=== PATIENT | female | born 1950 | race African-American/Black ===

== ENCOUNTER 2017-05-03 08:44 | Inpatient (IN) | payer BC ==
[2017-05-03] VITALS (8 sets, daily range): BP systolic 79–135; BP diastolic 44–105
[~2017-05-03] VITALS: Ht 162.6 cm; Wt 54.4 kg
[2017-05-03] MEDS ORDERED: DOCUSATE SODIU100 MG GT (08:55)
[2017-05-03] MEDS ORDERED: FUROSEMIDE20 M1 GT (08:55)
[2017-05-03] MEDS ORDERED: CARAFATE1 G1 GT (08:55)
[2017-05-03] MEDS ORDERED: FOLIC ACID1 MG GT (08:55)
[2017-05-03] MEDS ORDERED: ATORVASTATIN CA20 MG GT (08:55)
[2017-05-03] MEDS ORDERED: HYDROCODON-ACE1 EA15 GT (08:55)
[2017-05-03] MEDS ORDERED: LEVALBUTER1.25 MG/3 IH (08:55)
[2017-05-03] MEDS ORDERED: FAMOTIDINE40 MG GT (08:55)
--- NOTE | 2017-05-03 08:57 | Emergency Room Report ---
History of Present Illness General Chief Complaint: General Complaint Source: Patient, EMS Present Illness HPI 67-year-old female history of chronic respiratory failure with ventilator dependency with trach placed March 2017, history of right pneumonectomy 2006 , CHF last echo performed in [facility] showing ejection fraction of 68% with mild diastolic dysfunction,, paroxysmal A. fib not on anticoagulation because of GI bleed, gastrostomy tube, presenting with abdominal pain. Patient has trach however able to answer yes or no questions with head nodding. Complained of abdominal pain, points to suprapubic and right lower courted area, occurred this morning. Per EMS patient was tachycardia about 120s. Patient has some nausea but no caesar vomiting. Denies diarrhea denies fever or chills Allergies: Coded Allergies: ALBUTEROL (Verified Allergy, Unknown, 05/03/17) CODEINE (Verified Allergy, Unknown, 05/03/17) TRAMADOL (Verified Allergy, Unknown, 05/03/17) WARFARIN (Verified Allergy, Unknown, 05/03/17) Patient History Past Medical History: see triage record Past Surgical History: none Pertinent Family History: none Reviewed Nursing Documentation: PMH: Agreed, PSxH: Agreed Nursing Documentation-PMH Past Medical History: No History, Except For Hx Cardiac Problems: Yes - CHF, AFIB Hx Asthma: No - VENT Hx COPD: Yes Hx Gastrointestinal Problems: Yes - G-TUBE Hx Cerebrovascular Accident: No - ENCEPHALOPATHY Review of Systems All Other Systems: negative except mentioned in HPI Physical Exam Vital Signs Date Time Temp Pulse Resp B/P (MAP) Pulse Ox O2 Delivery O2 Flow Rate FiO2 05/03/17 08:39 128 18 132/78 100 Trach Collar Sp02 EP Interpretation: reviewed, normal General Appearance: alert, non-toxic, other - Middle aged female, appears tired , trached however alert and answering questions with yes or no and hand gestures Head: normocephalic, atraumatic Eyes: bilateral eye normal inspection, bilateral eye PERRL, bilateral eye EOMI ENT: normal pharynx, moist mucus membranes, other - Unable to speak secondary to trach Neck: normal inspection, full range of motion, supple Respiratory: normal inspection, lungs clear, normal breath sounds, no respiratory distress, no retraction, no wheezing, speaking full sentences, other - Trach, chest symmetrical Cardiovascular #1: normal inspection, regular rate, rhythm, no edema, normal capillary refill Cardiovascular #2: 2+ radial (R), 2+ radial (L) Gastrointestinal: soft, non-distended, no guarding, other - PEG tube in place, right lower quadrant and suprapubic tenderness, no guarding or rebound Musculoskeletal: normal inspection, back normal, normal range of motion, non- tender Neurologic: responsive, motor strength/tone normal, sensory intact, other - Unable to speak however moving all 4 extremities spontaneously, following commands Psychiatric: normal inspection, judgement/insight normal, memory normal Skin: normal inspection, normal color, no rash, warm/dry, well hydrated, normal turgor Procedures Critical Care Time Critical Care Time 40 minutes of CC time 67-year-old female with abdominal pain VS: Borderline febrile, tachycardia, hypotensive Sepsis criteria met Trach tube to vent PLAN: IV access, labs, lactate, Blood/Urine Cx, Abx Anticipate admission to [facility] CC time also includes review of labs, review of EMR, discussion with family and paperwork from SNF, d/w hospitalist CC could include dosing of pressors, additional Abx CC time does not include procedures Medical Decision Making Diagnostic Impression: Primary Impression: Severe sepsis Additional Impressions: UTI (urinary tract infection) Respiratory failure Tracheostomy dependence ER Course 67-year-old female with abdominal pain Differential Diagnosis: Gastritis, gastroenteritis, appendicitis, diverticulitis, SBO, mesenteric ischemia, cardiac, UTI/pyelo Plan: Basic labs, ua, ekg pain control, IVF, Zofran CTA abdo pelvis. ER course: Trach to vent, normal SpO2 became hypotensive MAP 50, 30cc/kgfluid given with improvement of BP 99.6 rectal temperature BP improved MAP > 65 with fluids abx given will admit to [facility] Disposition: The patient will require admission to [facility] Discussed with hospitalist Patient signed out to Dr. Walker, who has accepted patient for admission. Please note that this Emergency Department Report was dictated using e[employer]iset[employer] setter technology software, occasionally this can lead to erroneous entry secondary to interpretation by the dictation equipment EKG Diagnostic Results EP Interpretation: Yes Rate: normal Rhythm: NSR ST Segments: No acute changes no ASA given to patient: no Rhythm Strip EP Interpretation: Yes Rate: 97 Rhythm: NSR, no PVCs, no ectopy Chest X-ray CXR: Ordered: Yes 1 view Indication: pain EP interpretation: Yes Interpretation: Right PIC line, right pneumonectomy with surgical clips, complete opacification of the right hemithorax. Tracheostomy and PICC line noted Impression: Right pneumonectomy, tracheostomy and PICC line noted Electronically signed by Carmela Lerma MD Laboratory Tests Test 05/03/17 08:55 05/03/17 09:26 White Blood Count 13.4 K/UL (4.8-10.8) H Red Blood Count 3.32 M/UL (4.20-5.40) L Hemoglobin 9.5 G/DL (12.0-16.0) L Hematocrit 30.2 % (37.0-47.0) L Mean Corpuscular Volume 91 FL (80-99) Mean Corpuscular Hemoglobin 28.5 PG (27.0-31.0) Mean Corpuscular Hemoglobin Concent 31.3 G/DL (32.0-36.0) L Red Cell Distribution Width 17.6 % (11.6-14.8) H Platelet Count 313 K/UL (150-450) Mean Platelet Volume 6.3 FL (6.5-10.1) L Neutrophils (%) (Auto) % (45.0-75.0) Lymphocytes (%) (Auto) % (20.0-45.0) Monocytes (%) (Auto) % (1.0-10.0) Eosinophils (%) (Auto) % (0.0-3.0) Basophils (%) (Auto) % (0.0-2.0) Differential Total Cells Counted 100 Neutrophils % (Manual) 89 % (45-75) H Lymphocytes % (Manual) 7 % (20-45) L Monocytes % (Manual) 4 % (1-10) Eosinophils % (Manual) 0 % (0-3) Basophils % (Manual) 0 % (0-2) Band Neutrophils 0 % (0-8) Platelet Estimate Adequate Platelet Morphology Normal Anisocytosis 1+ Stomatocytes 1+ Schistocytes 1+ Sodium Level 136 MMOL/L (136-145) Potassium Level 3.7 MMOL/L (3.5-5.1) Chloride Level 99 MMOL/L (98-107) Carbon Dioxide Level 34 MMOL/L (21-32) H Anion Gap 3 (5-15) L Blood Urea Nitrogen 17 mg/dL (7-18) Creatinine 0.6 MG/DL (0.55-1.30) Estimate Glomerular Filtration Rate > 60 mL/min (>60) Glucose Level 228 MG/DL (74-106) H Calcium Level 9.3 MG/DL (8.5-10.1) Total Bilirubin 0.4 MG/DL (0.2-1.0) Aspartate Amino Transferase (AST) 37 U/L (15-37) Alanine Aminotransferase (ALT) 23 U/L (12-78) Alkaline Phosphatase 185 U/L (46-116) H Troponin I 0.019 ng/mL (0.000-0.056) Total Protein 6.9 G/DL (6.4-8.2) Albumin 3.0 G/DL (3.4-5.0) L Globulin 3.9 g/dL Albumin/Globulin Ratio 0.8 (1.0-2.7) L Lipase 153 U/L (73-393) Urine Color Brown Urine Appearance Slightly cloudy Urine pH 6 (4.5-8.0) Urine Specific [place] 1.020 (1.005-1.035) Urine Protein 4+ (NEGATIVE) H Urine Glucose (UA) Negative (NEGATIVE) Urine Ketones Negative (NEGATIVE) Urine Occult Blood 2+ (NEGATIVE) H Urine Nitrite Negative (NEGATIVE) Urine Bilirubin Negative (NEGATIVE) Urine Urobilinogen 4 MG/DL (0.0-1.0) H Urine Leukocyte Esterase 1+ (NEGATIVE) H Urine RBC 5-10 /HPF (0 - 2) H Urine WBC 15-20 /HPF (0 - 2) H Urine Squamous Epithelial Cells Few /LPF (NONE/OCC) Urine Bacteria Moderate /HPF (NONE) H Urine Mucus Few /LPF (NONE/OCC) H CT/MRI/US Diagnostic Results CT/MRI/US Diagnostic Results : Imaging Test Ordered: CT abdo pelvis Impression Findings: The visualized part of the lung base shows a contracted right pleural space filled with fluid. There is calcification of the pleura at the right lung base noted. The heart is enlarged. The left lung base is relatively clear. There is a trace left pleural effusion. Gastrostomy is noted. There is a stone in the gallbladder noted. Aorta is moderately calcified. The liver shows heterogeneous enhancement but is probably a phase related rather than indicative of pathology. There is no hydronephrosis. No gross abnormalities of the pancreas identified. No obvious bowel obstruction, free fluid or free air identified. Urinary bladder is contracted. The central part of the uterus is somewhat prominent. Impression: Small gallstone noted within the gallbladder. Volume loss involving the right hemithorax which is not well seen on this examination. The findings taken together with the chest x-ray findings probably represent pneumonectomy. Please correlate with the surgical history. Cardiomegaly and atherosclerotic disease. Heterogeneous liver perfusion. The nature of this is not known but is probably related to the phase of enhancement rather than to pathology. Gastrostomy. Prominence of the central part of the uterus. Thickened endometrium versus endometrial fluid. Please correlate clinically. Sonographic evaluation may be of benefit. Trace left pleural effusion Last Vital Signs Date Time Temp Pulse Resp B/P (MAP) Pulse Ox O2 Delivery O2 Flow Rate FiO2 05/03/17 08:39 128 18 132/78 100 Trach Collar Disposition: ADMITTED INPATIENT Condition: Critical Carmela Lerma M.D. May 03, 2017 08:57
[2017-05-03 09:30] LABS: MEAN CORPUSCULAR HEMOGLOBIN 28.5 PG (27.0-31.0); MEAN CORPUSCULAR HGB CONC 31.3 G/DL (32.0-36.0); MEAN CORPUSCULAR VOLUME 91 FL (80-99); MEAN PLATELET VOLUME 6.3 FL (6.5-10.1); PLATELET COUNT 313 K/UL (150-450); RED BLOOD COUNT 3.32 M/UL (4.20-5.40); RED CELL DISTRIBUTION WIDTH 17.6 % (11.6-14.8); WHITE BLOOD COUNT 13.4 K/UL (4.8-10.8)
[2017-05-03 10:07] LABS: ALANINE AMINOTRANSFERASE 23 U/L (12-78); ALBUMIN/GLOBULIN RATIO 0.8 (1.0-2.7); ANION GAP 3 (5-15); ASPARTATE AMINO TRANSFERASE 37 U/L (15-37); CALCIUM 9.3 MG/DL (8.5-10.1); CARBON DIOXIDE 34 MMOL/L (21-32); CHLORIDE 99 MMOL/L (98-107); CREATININE 0.6 MG/DL (0.55-1.30); GLOMERULAR FILTRATION RATE > 60 mL/min (>60); LIPASE 153 U/L (73-393); POTASSIUM 3.7 MMOL/L (3.5-5.1); SODIUM 136 MMOL/L (136-145); TOTAL PROTEIN 6.9 G/DL (6.4-8.2)
[2017-05-03 10:14] LABS: APPEARANCE,URINE SLIGHTLY CLOUDY; KETONES,URINE NEGATIVE (NEGATIVE); LEUKOCYTE ESTERASE ,URINE 1+ (NEGATIVE); NITRITE,URINE NEGATIVE (NEGATIVE); PH,URINE 6 (4.5-8.0); PROTEIN,URINE 4+ (NEGATIVE); UROBILINOGEN,URINE 4 MG/DL (0.0-1.0)
[2017-05-03 10:24] LABS: ANISOCYTOSIS 1+; BAND NEUTROPHILS % (MANUAL) 0 % (0-8); BASOPHILS % (MANUAL) 0 % (0-2); EOSINOPHILS % (MANUAL) 0 % (0-3); LYMPHOCYTES % (MANUAL) 7 % (20-45); NEUTROPHILS % (MANUAL) 89 % (45-75); PLATELET ESTIMATE ADEQUATE; PLATELET MORPHOLOGY NORMAL; SCHISTOCYTES 1+; STOMATOCYTES 1+; TOTAL CELLS COUNTED 100
[2017-05-03 10:27] LABS: SQUAMOUS EPITHELIAL CELL,UR FEW /LPF (NONE/OCC); WBC,URINE 15-20 /HPF (0 - 2)
[2017-05-03 10:28] LABS: BACTERIA,URINE MODERATE /HPF; MUCUS,URINE FEW /LPF (NONE/OCC)
[2017-05-03] MEDS ORDERED: Cefepime HCl 1 GM in D5W 55 ML IVPB ONE (11:30)
[2017-05-03] MEDS ORDERED: Cefepime 1gm vial ONE (11:32)
--- NOTE | 2017-05-03 11:39 | Diagnostic Imaging Report ---
Indication: Dyspnea Comparison: None A single view chest radiograph was obtained. Findings: Tracheostomy noted. There is a right PICC line. Patient appears to have had right pneumonectomy with surgical clips and complete opacification of the right hemithorax. There are calcifications scattered throughout the left lung field. Bones are osteopenic. Impression: Findings compatible with previous right pneumonectomy. Calcification may be due to old granulomatous disease Tracheostomy and PICC line noted.
--- NOTE | 2017-05-03 12:17 | Diagnostic Imaging Report ---
Indication: Abdominal pain Technique: Continuous helical transaxial imaging of the abdomen and pelvis was obtained from the lung bases to the pubic symphysis during intravenous contrast administration. Coronal 2-D reformats were also obtained. Study obtained in a Siemens sensation [address] Total Dose length Product (DLP): [address] Dose Index Volume (CTDIvol): 11 mGy Comparison: None Findings: The visualized part of the lung base shows a contracted right pleural space filled with fluid. There is calcification of the pleura at the right lung base noted. The heart is enlarged. The left lung base is relatively clear. There is a trace left pleural effusion. Gastrostomy is noted. There is a stone in the gallbladder noted. Aorta is moderately calcified. The liver shows heterogeneous enhancement but is probably a phase related rather than indicative of pathology. There is no hydronephrosis. No gross abnormalities of the pancreas identified. No obvious bowel obstruction, free fluid or free air identified. Urinary bladder is contracted. The central part of the uterus is somewhat prominent. Impression: Small gallstone noted within the gallbladder. Volume loss involving the right hemithorax which is not well seen on this examination. The findings taken together with the chest x-ray findings probably represent pneumonectomy. Please correlate with the surgical history. Cardiomegaly and atherosclerotic disease. Heterogeneous liver perfusion. The nature of this is not known but is probably related to the phase of enhancement rather than to pathology. Gastrostomy. Prominence of the central part of the uterus. Thickened endometrium versus endometrial fluid. Please correlate clinically. Sonographic evaluation may be of benefit. Trace left pleural effusion The CT scanner at [facility] is accredited by the [employer] and the scans are performed using dose optimization techniques as appropriate to a performed exam including Automatic Exposure control.
--- NOTE | 2017-05-03 14:56 | History & Physical ---
History and Physical History & Physicial 67-year-old female history of chronic respiratory failure with ventilator dependency with trach placed March 2017, history of right pneumonectomy 2006 , Complained of abdominal pain, points to suprapubic and right lower courted area , occurred this morning. Per was tachycardia about 120s. Patient has some nausea but no caesar vomiting. Denies diarrhea denies fever or chills Patient now hemodynamically stable and admitted for hydration and antibiotics Allergies: ALBUTEROL (Verified Allergy, Unknown, 05/03/17) CODEINE (Verified Allergy, Unknown, 05/03/17) TRAMADOL (Verified Allergy, Unknown, 05/03/17) WARFARIN (Verified Allergy, Unknown, 05/03/17) Past Medical History: CHF, atrial fib, chronic ALOC Past Surgical History: trach, gt pneumonectomy Pertinent Family History: none Reviewed of systems: unable Physical exam WDWN NAD coarse breath sounds bilaterally without rhonchi or wheeze [id number] without MRG NABS nontender no HSM GT trach no CCE reduced LOC Labs Test 05/03/17 08:55 05/03/17 09:26 White Blood Count 13.4 K/UL (4.8-10.8) Red Blood Count 3.32 M/UL (4.20-5.40) Hemoglobin 9.5 G/DL (12.0-16.0) Hematocrit 30.2 % (37.0-47.0) Mean Corpuscular Volume 91 FL (80-99) Mean Corpuscular Hemoglobin 28.5 PG (27.0-31.0) Mean Corpuscular Hemoglobin Concent 31.3 G/DL (32.0-36.0) Red Cell Distribution Width 17.6 % (11.6-14.8) Platelet Count 313 K/UL (150-450) Mean Platelet Volume 6.3 FL (6.5-10.1) Neutrophils (%) (Auto) % (45.0-75.0) Lymphocytes (%) (Auto) % (20.0-45.0) Monocytes (%) (Auto) % (1.0-10.0) Eosinophils (%) (Auto) % (0.0-3.0) Basophils (%) (Auto) % (0.0-2.0) Differential Total Cells Counted 100 Neutrophils % (Manual) 89 % (45-75) Lymphocytes % (Manual) 7 % (20-45) Monocytes % (Manual) 4 % (1-10) Eosinophils % (Manual) 0 % (0-3) Basophils % (Manual) 0 % (0-2) Band Neutrophils 0 % (0-8) Platelet Estimate Adequate Platelet Morphology Normal Anisocytosis 1+ Stomatocytes 1+ Schistocytes 1+ Sodium Level 136 MMOL/L (136-145) Potassium Level 3.7 MMOL/L (3.5-5.1) Chloride Level 99 MMOL/L (98-107) Carbon Dioxide Level 34 MMOL/L (21-32) Anion Gap 3 (5-15) Blood Urea Nitrogen 17 mg/dL (7-18) Creatinine 0.6 MG/DL (0.55-1.30) Estimat Glomerular Filtration Rate > 60 mL/min (>60) Glucose Level 228 MG/DL (74-106) Calcium Level 9.3 MG/DL (8.5-10.1) Total Bilirubin 0.4 MG/DL (0.2-1.0) Aspartate Amino Transf (AST/SGOT) 37 U/L (15-37) Alanine Aminotransferase (ALT/SGPT) 23 U/L (12-78) Alkaline Phosphatase 185 U/L (46-116) Troponin I 0.019 ng/mL (0.000-0.056) Total Protein 6.9 G/DL (6.4-8.2) Albumin 3.0 G/DL (3.4-5.0) Globulin 3.9 g/dL Albumin/Globulin Ratio 0.8 (1.0-2.7) Lipase 153 U/L (73-393) Urine Color Brown Urine Appearance Slightly cloudy Urine pH 6 (4.5-8.0) Urine Specific [place] 1.020 (1.005-1.035) Urine Protein 4+ (NEGATIVE) Urine Glucose (UA) Negative (NEGATIVE) Urine Ketones Negative (NEGATIVE) Urine Occult Blood 2+ (NEGATIVE) Urine Nitrite Negative (NEGATIVE) Urine Bilirubin Negative (NEGATIVE) Urine Urobilinogen 4 MG/DL (0.0-1.0) Urine Leukocyte Esterase 1+ (NEGATIVE) Urine RBC 5-10 /HPF (0 - 2) Urine WBC 15-20 /HPF (0 - 2) Urine Squamous Epithelial Cells Few /LPF (NONE/OCC) Urine Bacteria Moderate /HPF (NONE) Urine Mucus Few /LPF (NONE/OCC) IMPRESSION respiratory failure trach gt leukocytosis possible sepsis chronic encephalopathy PLAN empiric antibiotics respiratory care IV hydration IV antibiotics supportive care ID evaluation dc once stable GAGE CASAREZ May 03, 2017 14:56
[2017-05-03] MEDS: Vancomycin 750mg/NS 250ml 250 ML IVPB SCH (17:34)
[2017-05-03] MEDS: Piperacillin/Tazobactam 3.375 GM in D5W 110 ML IVPB SCH (20:37)
[2017-05-03] MEDS: Acetaminophen 650mg/20.3ml GT PRN (20:38)
[2017-05-03] MEDS ORDERED: Heparin 5000 units/ml inj SUBQ SCH (21:00)
[2017-05-04] MEDS: Zolpidem 5mg tab GT PRN ×2 (00:09→22:41)
[2017-05-04 00:38] VITALS: BP 99/54
[2017-05-04] MEDS: Acetaminophen 650mg/20.3ml GT PRN ×2 (03:50→13:53)
[2017-05-04 04:00] VITALS: BP 101/48
[2017-05-04] MEDS: Vancomycin 750mg/NS 250ml 250 ML IVPB SCH ×2 (05:17→19:04)
[2017-05-04] MEDS: Piperacillin/Tazobactam 3.375 GM in D5W 110 ML IVPB SCH ×3 (06:47→21:56)
[2017-05-04 07:37] LABS: BASOPHILS % (AUTO) 0.8 % (0.0-2.0); EOSINOPHILS % (AUTO) 0.8 % (0.0-3.0); LYMPHOCYTES % (AUTO) 19.1 % (20.0-45.0); MEAN CORPUSCULAR HEMOGLOBIN 28.2 PG (27.0-31.0); MEAN CORPUSCULAR VOLUME 91 FL (80-99); MEAN PLATELET VOLUME 6.3 FL (6.5-10.1); MONOCYTES % (AUTO) 8.4 % (1.0-10.0); NEUTROPHILS % (AUTO) 70.9 % (45.0-75.0); PLATELET COUNT 268 K/UL (150-450); RED BLOOD COUNT 3.13 M/UL (4.20-5.40); RED CELL DISTRIBUTION WIDTH 18.2 % (11.6-14.8); WHITE BLOOD COUNT 10.9 K/UL (4.8-10.8)
[2017-05-04 08:00] VITALS: BP 112/71
[2017-05-04 08:45] LABS: ANION GAP 6 (5-15); CARBON DIOXIDE 28 MMOL/L (21-32); CHLORIDE 103 MMOL/L (98-107); CREATININE 0.6 MG/DL (0.55-1.30); GLOMERULAR FILTRATION RATE > 60 mL/min (>60); POTASSIUM 3.7 MMOL/L (3.5-5.1); SODIUM 137 MMOL/L (136-145)
--- NOTE | 2017-05-04 10:01 | General Progress Note ---
Assessment/Plan Problem List: (1) Respiratory failure ICD Codes: J96.90 - Respiratory failure, unspecified, unspecified whether with hypoxia or hypercapnia SNOMED: 161421860 (2) Severe sepsis ICD Codes: A41.9 - Sepsis, unspecified organism; R65.20 - Severe sepsis without septic shock SNOMED: 60205528 (3) Tracheostomy dependence ICD Codes: Z93.0 - Tracheostomy status SNOMED: 232048595, 537152567 (4) UTI (urinary tract infection) ICD Codes: N39.0 - Urinary tract infection, site not specified SNOMED: 56155389, 324170117 Status: stable Assessment/Plan iv abx follow up cultures vent resp rx gt feeds Subjective ROS Limited/Unobtainable: No Constitutional: Reports: malaise, weakness HEENT: Reports: no symptoms Cardiovascular: Reports: no symptoms Respiratory: Reports: cough Gastrointestinal/Abdominal: Reports: difficulty swallowing Genitourinary: Reports: no symptoms Neurologic/Psychiatric: Reports: pre-existing deficit Endocrine: Reports: no symptoms Hematologic/Lymphatic: Reports: no symptoms Allergies: Coded Allergies: HEPARIN (Verified Allergy, Mild, Shortness of Breath, 05/03/17) ALBUTEROL (Verified Allergy, Unknown, 05/03/17) CODEINE (Verified Allergy, Unknown, 05/03/17) TRAMADOL (Verified Allergy, Unknown, 05/03/17) WARFARIN (Verified Allergy, Unknown, 05/03/17) All Systems: reviewed and negative except above Subjective no events. on the vent. awake and alert. no complaints. on iv abx. on feeds Objective Last 24 Hour Vital Signs Date Time Temp Pulse Resp B/P (MAP) Pulse Ox O2 Delivery O2 Flow Rate FiO2 05/04/17 09:05 76 26 30 05/04/17 08:00 97.9 79 27 112/71 100 Mechanical Ventilator 30 05/04/17 07:01 77 19 30 05/04/17 05:25 72 25 30 05/04/17 04:20 97.9 05/04/17 04:00 30.0 05/04/17 04:00 97.7 69 21 101/48 98 Mechanical Ventilator 30 05/04/17 04:00 66 05/04/17 03:26 79 23 30 05/04/17 01:35 81 19 30 05/04/17 00:38 97.9 63 20 99/54 99 Mechanical Ventilator 30 05/04/17 00:00 66 05/03/17 23:25 87 19 30 05/03/17 21:04 101 21 30 05/03/17 20:00 98.6 80 22 107/53 100 Mechanical Ventilator 30 05/03/17 20:00 80 05/03/17 20:00 30.0 05/03/17 19:39 101 37 30 05/03/17 19:37 101 26 30 05/03/17 17:26 83 05/03/17 17:10 79 22 30 05/03/17 16:51 30.0 05/03/17 16:00 98.7 83 24 135/64 100 Mechanical Ventilator 30 05/03/17 15:00 78 27 30 05/03/17 14:20 97.3 72 22 107/85 100 Mechanical Ventilator 12.0 30 05/03/17 14:15 99.6 78 30 133/105 100 Mechanical Ventilator 12.0 30 05/03/17 13:05 78 30 30 05/03/17 11:43 99.6 78 26 133/105 100 Mechanical Ventilator 12.0 30 05/03/17 11:35 80 25 30 05/03/17 11:04 98 20 110/56 98 Mechanical Ventilator 12.0 05/03/17 11:00 104 20 107/58 97 Mechanical Ventilator 12.0 05/03/17 10:17 99.6 80 24 79/44 100 Mechanical Ventilator 12.0 30 Laboratory Tests 05/04/17 06:50: White Blood Count 10.9H, Red Blood Count 3.13L, Hemoglobin 8.8L, Hematocrit 28.5L, Mean Corpuscular Volume 91, Mean Corpuscular Hemoglobin 28.2, Mean Corpuscular Hemoglobin Concent 31.0L, Red Cell Distribution Width 18.2H, Platelet Count 268, Mean Platelet Volume 6.3L, Neutrophils (%) (Auto) 70.9, Lymphocytes (%) (Auto) 19.1L, Monocytes (%) (Auto) 8.4, Eosinophils (%) (Auto) 0.8, Basophils (%) (Auto) 0.8, Sodium Level 137, Potassium Level 3.7, Chloride Level 103, Carbon Dioxide Level 28, Anion Gap 6, Blood Urea Nitrogen 12, Creatinine 0.6, Estimat Glomerular Filtration Rate > 60, Glucose Level 88#, Calcium Level 9.0 Height (Feet): 5 Height (Inches): 4.00 Weight (Pounds): 120 General Appearance: WD/WN, alert Neck: supple Cardiovascular: regular rhythm Respiratory/Chest: lungs clear Abdomen: normal bowel sounds, non tender, soft, no organomegaly Edema: no edema noted Arm (L), no edema noted Arm (R), no edema noted Leg (L), no edema noted Leg (R), no edema noted Pedal (L), no edema noted Pedal (R), no edema noted Generalized JAMESON MOREIRA May 04, 2017 10:01
[2017-05-04 12:00] VITALS: BP 117/56
[2017-05-04 16:00] VITALS: BP 118/62
[2017-05-04] MEDS ORDERED: Sterile Water For Irrig 2000ml IRRIG ONE (16:23)
[2017-05-04] MEDS ORDERED: Tubing IV Secondary IV ONE (16:23)
[2017-05-04] MEDS: Levalbuterol Inh UD 1.25mg/0.5ml HHN PRN ×2 (16:53→21:10)
[2017-05-04 20:00] VITALS: BP 118/62
[2017-05-04] MEDS: Norco 5mg/325mg tab GT PRN (21:57)
[2017-05-05] VITALS: BP 120/61
[2017-05-05] MEDS ORDERED: Dyna-Hex 2% Top Sol 2oz TOPIC SCH (02:00)
[2017-05-05 04:00] VITALS: BP 123/64
[2017-05-05] MEDS: Vancomycin 750mg/NS 250ml 250 ML IVPB SCH ×2 (05:08→06:30)
[2017-05-05] MEDS: Norco 5mg/325mg tab GT PRN ×2 (05:40→17:44)
[2017-05-05] MEDS: Piperacillin/Tazobactam 3.375 GM in D5W 110 ML IVPB SCH (07:51)
[2017-05-05 08:00] VITALS: BP 120/65
[2017-05-05] MEDS: Levalbuterol Inh UD 1.25mg/0.5ml HHN PRN ×3 (11:13→22:05)
[2017-05-05 12:00] VITALS: BP 118/58
--- NOTE | 2017-05-05 12:03 | General Progress Note ---
Assessment/Plan Problem List: (1) Respiratory failure ICD Codes: J96.90 - Respiratory failure, unspecified, unspecified whether with hypoxia or hypercapnia SNOMED: 959934935 (2) Severe sepsis ICD Codes: A41.9 - Sepsis, unspecified organism; R65.20 - Severe sepsis without septic shock SNOMED: 03312072 (3) Tracheostomy dependence ICD Codes: Z93.0 - Tracheostomy status SNOMED: 588851132, 850972094 (4) UTI (urinary tract infection) ICD Codes: N39.0 - Urinary tract infection, site not specified SNOMED: 30802992, 183218306 Status: stable, progressing Assessment/Plan iv abx follow up cultures- +vre vent resp rx gt feeds pain rx Subjective ROS Limited/Unobtainable: No Constitutional: Reports: malaise, weakness HEENT: Reports: no symptoms Cardiovascular: Reports: no symptoms Respiratory: Reports: cough Gastrointestinal/Abdominal: Reports: abdominal pain Genitourinary: Reports: no symptoms Neurologic/Psychiatric: Reports: pre-existing deficit Endocrine: Reports: no symptoms Hematologic/Lymphatic: Reports: anemia Allergies: Coded Allergies: HEPARIN (Verified Allergy, Mild, Shortness of Breath, 05/03/17) ALBUTEROL (Verified Allergy, Unknown, 05/03/17) CODEINE (Verified Allergy, Unknown, 05/03/17) TRAMADOL (Verified Allergy, Unknown, 05/03/17) WARFARIN (Verified Allergy, Unknown, 05/03/17) All Systems: reviewed and negative except above Subjective no events. on the vent. awake and alert. mild abd pain yesterday. better now. on iv abx. on feeds Objective Last 24 Hour Vital Signs Date Time Temp Pulse Resp B/P (MAP) Pulse Ox O2 Delivery O2 Flow Rate FiO2 05/05/17 11:14 69 17 100 Mechanical Ventilator 30 05/05/17 11:07 68 17 100 Mechanical Ventilator 30 05/05/17 11:07 68 26 30 05/05/17 08:36 76 24 30 05/05/17 08:00 98.6 75 16 120/65 100 Mechanical Ventilator 30 05/05/17 08:00 30.0 05/05/17 07:51 63 05/05/17 06:47 75 25 30 05/05/17 06:39 98.1 05/05/17 05:15 70 25 30 05/05/17 04:00 98.2 73 21 123/64 100 Mechanical Ventilator 30 05/05/17 04:00 67 05/05/17 04:00 30.0 05/05/17 03:04 62 21 30 05/05/17 01:04 65 21 30 05/05/17 00:00 74 05/05/17 00:00 30.0 05/05/17 00:00 98.1 70 24 120/61 100 Mechanical Ventilator 30 05/04/17 23:12 79 32 30 05/04/17 22:56 98.2 05/04/17 21:18 66 15 100 Mechanical Ventilator 30 05/04/17 21:10 71 24 100 Mechanical Ventilator 30 05/04/17 21:10 71 24 30 05/04/17 20:00 77 05/04/17 20:00 30.0 05/04/17 20:00 98.2 80 26 118/62 100 Mechanical Ventilator 30 05/04/17 19:00 79 34 30 05/04/17 17:01 68 12 12 Mechanical Ventilator 30 05/04/17 16:55 72 32 30 05/04/17 16:50 72 28 100 Mechanical Ventilator 30 05/04/17 16:00 68 05/04/17 16:00 30.0 05/04/17 16:00 98.0 76 26 118/62 100 Mechanical Ventilator 30 05/04/17 15:06 70 33 30 05/04/17 13:26 66 24 30 Intake and Output 05/05/17 05/06/17 19:00 07:00 Intake Total 567.500 ml Balance 567.500 ml IV Total 477.500 ml Tube Feeding 60 ml Other 30 ml Laboratory Tests 05/05/17 05:00: Vancomycin Level Trough 13.1H Height (Feet): 5 Height (Inches): 4.00 Weight (Pounds): 120 Objective General Appearance: WD/WN, alert Neck: supple Cardiovascular: regular rhythm Respiratory/Chest: lungs clear Abdomen: normal bowel sounds, non tender, soft, no organomegaly Edema: no edema noted Arm (L), no edema noted Arm (R), no edema noted Leg (L), no edema noted Leg (R), no edema noted Pedal (L), no edema noted Pedal (R), no edema noted Generalized JAMESON MOREIRA May 05, 2017 12:03
--- NOTE | 2017-05-05 13:30 | Pulmonology Progress Note ---
Assessment/Plan Assessment/Plan IMPRESSION respiratory failure trach gt leukocytosis possible sepsis chronic encephalopathy abdominal pain PLAN empiric antibiotics respiratory care IV hydration IV antibiotics supportive care ID evaluation GI evaluation dc once stable Subjective Allergies: Coded Allergies: HEPARIN (Verified Allergy, Mild, Shortness of Breath, 05/03/17) ALBUTEROL (Verified Allergy, Unknown, 05/03/17) CODEINE (Verified Allergy, Unknown, 05/03/17) TRAMADOL (Verified Allergy, Unknown, 05/03/17) WARFARIN (Verified Allergy, Unknown, 05/03/17) Subjective abdominal pain and some breathing issues orders given Objective Last 24 Hour Vital Signs Date Time Temp Pulse Resp B/P (MAP) Pulse Ox O2 Delivery O2 Flow Rate FiO2 05/05/17 12:30 76 25 30 05/05/17 11:14 69 17 100 Mechanical Ventilator 30 05/05/17 11:07 68 17 100 Mechanical Ventilator 30 05/05/17 11:07 68 26 30 05/05/17 08:36 76 24 30 05/05/17 08:00 98.6 75 16 120/65 100 Mechanical Ventilator 30 05/05/17 08:00 30.0 05/05/17 07:51 63 05/05/17 06:47 75 25 30 05/05/17 06:39 98.1 05/05/17 05:15 70 25 30 05/05/17 04:00 98.2 73 21 123/64 100 Mechanical Ventilator 30 05/05/17 04:00 67 05/05/17 04:00 30.0 05/05/17 03:04 62 21 30 05/05/17 01:04 65 21 30 05/05/17 00:00 74 05/05/17 00:00 30.0 05/05/17 00:00 98.1 70 24 120/61 100 Mechanical Ventilator 30 05/04/17 23:12 79 32 30 05/04/17 22:56 98.2 05/04/17 21:18 66 15 100 Mechanical Ventilator 30 05/04/17 21:10 71 24 100 Mechanical Ventilator 30 05/04/17 21:10 71 24 30 05/04/17 20:00 77 05/04/17 20:00 30.0 05/04/17 20:00 98.2 80 26 118/62 100 Mechanical Ventilator 30 05/04/17 19:00 79 34 30 05/04/17 17:01 68 12 12 Mechanical Ventilator 30 05/04/17 16:55 72 32 30 05/04/17 16:50 72 28 100 Mechanical Ventilator 30 05/04/17 16:00 68 05/04/17 16:00 30.0 05/04/17 16:00 98.0 76 26 118/62 100 Mechanical Ventilator 30 05/04/17 15:06 70 33 30 Intake and Output 05/05/17 05/06/17 19:00 07:00 Intake Total 567.500 ml Balance 567.500 ml IV Total 477.500 ml Tube Feeding 60 ml Other 30 ml Objective WDWN NAD reduced breath sounds bilaterally without rhonchi or wheeze [id number] without MRG NABS nontender no HSM; GT trach no CCE nonfocal Microbiology Date/Time Source Procedure Growth Status 05/03/17 08:55 Blood Blood Culture - Preliminary NO GROWTH AFTER 24 HOURS Resulted 05/03/17 08:55 Blood Blood Culture - Preliminary NO GROWTH AFTER 24 HOURS Resulted 05/03/17 08:50 Nasal Nares MRSA Culture - Final Staphylococcus Aureus - Mrsa Complete 05/03/17 09:26 Urine,Clean Catch Urine Culture - Final Enterococcus Faecium - Vre Complete 05/03/17 08:50 Rectum VRE Culture - Final Enterococcus Faecium - Vre Complete Laboratory Tests 05/05/17 05:00: Vancomycin Level Trough 13.1H Current Medications Medications (Trade) Dose Ordered Sig/Yg Route PRN Reason Start Time Stop Time Status Last Admin Dose Admin Acetaminophen (Tylenol) 650 mg Q4H PRN GT Mild Pain/Temp > 100.5 05/03/17 16:30 06/02/17 16:29 05/04/17 13:53 Acetaminophen/ Hydrocodone Bitart ([place] 5/325) 1 tab Q4H PRN GT Moderate Pain (Pain Scale 4-6) 05/04/17 21:45 05/11/17 21:44 05/04/17 21:57 Acetaminophen/ Hydrocodone Bitart ([place] 5/325) 2 tab Q4H PRN GT Severe Pain (Pain Scale 7-10) 05/04/17 21:45 05/11/17 21:44 05/05/17 05:40 Al Hydroxide/Mg Hydroxide (Mylanta) 30 ml Q6H PRN GT Abdominal cramps 05/03/17 16:30 06/02/17 16:29 Chlorhexidine Gluconate (Caro-Hex 2%) 1 applic 2100 TOPIC 05/06/17 21:00 06/04/17 01:59 Lansoprazole (Prevacid) 30 mg BID GT 05/04/17 09:00 06/03/17 08:59 05/05/17 08:49 Levalbuterol HCl (Xopenex) 1.25 mg EVERY 4 HOURS PRN HHN Bronchospasm 05/04/17 15:45 05/09/17 15:44 05/05/17 11:13 Lidocaine HCl (Xylocaine 1% 30ml) 30 ml ONCE ONCE INJ 05/06/17 10:15 05/06/17 10:16 Linezolid 300 ml @ 300 mls/hr Q12HR IVPB 05/05/17 12:00 05/12/17 11:59 Sodium Chloride 1,000 ml @ 100 mls/hr Q10H IV 05/03/17 17:30 06/02/17 17:29 05/05/17 08:50 Zolpidem Tartrate (Ambien) 5 mg HSPRN PRN GT Insomnia 05/03/17 16:30 05/10/17 16:29 05/04/17 22:41 GAGE CASAREZ May 05, 2017 13:30
[2017-05-05 16:00] VITALS: BP 119/57
[2017-05-05] MEDS ORDERED: Tubing IV Secondary IV ONE (17:10)
--- NOTE | 2017-05-05 17:15 | Consultation ---
DATE OF CONSULTATION: 05/05/2017 INFECTIOUS DISEASE CONSULTATION CONSULTING PHYSICIAN: Damian Pina M.D. This consultation is for coverage of Airam Solis M.D. ATTENDING PHYSICIAN: Cortes Walker M.D. REFERRING PHYSICIAN: Cortes Walker M.D. REASON FOR CONSULTATION: Sepsis, VRE UTI. HISTORY OF PRESENT ILLNESS: This is a 67-year-old female admitted on 05/03/2017 from long term facility, had abdominal pain and tachycardia. The patient is on ventilator and not good source of history. She had leukocytosis at the time of admission. Her urine was cultured and growing VRE. PAST MEDICAL HISTORY: Significant for ventilator-dependent respiratory failure, diastolic CHF, atrial fibrillation, status post G-tube, anemia, status post right lumpectomy. ALLERGIES: Allergic to albuterol, codeine, heparin, tramadol, warfarin. MEDICATIONS: [place], levalbuterol, Zosyn, vancomycin, Tylenol, Ambien, Mylanta. SOCIAL HISTORY: jail resident. REVIEW OF SYSTEMS: Complains of pain near G-tube site. PHYSICAL EXAMINATION: VITAL SIGNS: Temperature 98.6, pulse 68, blood pressure 120/65. No significant fever since hospitalization. HEAD AND NECK: Pale conjunctivae. Status post tracheostomy. HEART: She has systolic murmur. EXTREMITIES: Right arm PICC line that is old and was put prior to this admission. LUNGS: On mechanical ventilator. Absent sounds in the right side and clear in the left side. ABDOMEN: Soft. G-tube is in place. EXTREMITIES: No edema. NEUROLOGIC: Alert, responsive, obeys simple commands. LABORATORY AND DIAGNOSTIC DATA: Laboratories, sodium 137, potassium 3.7, chloride 103, bicarbonate 28, BUN 12, creatinine 0.6, glucose 88. WBC today is 10.9, hemoglobin 8.8, hematocrit 28.5, platelets 268,000. Urine culture shows VRE. MRSA screen was positive. VRE screen was positive. Blood cultures x2 are negative. IMPRESSION: 1. Sepsis, likely secondary to urinary tract infection. 2. The patient with ventilator-dependent respiratory failure. 3. 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 4. Gallstone on CT scan of the abdomen. 5. Diastolic congestive heart failure. 6. Anemia. RECOMMENDATION: We will change antibiotic to linezolid. At the end of my exam, I thank Dr. Walker for involving me in the care of this patient. Damian Pina M.D. DR: Gladis JOB#: [id number] CC: TROY
[2017-05-05 20:00] VITALS: BP 148/74
--- NOTE | 2017-05-05 20:00 | Consultation ---
DATE OF CONSULTATION: 05/05/2017 GASTROINTESTINAL CONSULTATION CONSULTING PHYSICIAN: Claude Travis M.D. ATTENDING PHYSICIAN: Cortes Walker M.D. REFERRING PHYSICIAN: Cortes Walker M.D. CHIEF COMPLAINT: Abdominal pain. HISTORY OF PRESENT ILLNESS: Most of history per chart. This is an unfortunate 67-year-old female with history of respiratory failure, vent dependent with trach which was placed recently in 03/2017, history of dysphagia requiring G-tube placement, history of paroxysmal atrial fibrillation but apparently anticoagulation was stopped because of the GI bleeding present with abdominal pain. Abdominal pain is about one day associated with nausea with no vomiting, no hematemesis, no melena, no hematochezia. The pain again started about a day ago. PAST MEDICAL HISTORY: 1. Dysphagia, requiring G-tube. 2. Respiratory failure, requiring trach. 3. Paroxysmal atrial fibrillation. 4. Prior history of GI bleeding. ALLERGIES: To albuterol, codeine, heparin, tramadol, and Coumadin. MEDICATIONS: Please see medication reconciliation list. SOCIAL HISTORY: Lives in a subacute place. No recent history of tobacco, alcohol, or drug abuse. FAMILY HISTORY: Noncontributory. PAST SURGICAL HISTORY: Tracheostomy. REVIEW OF SYSTEMS: Limited. PHYSICAL EXAMINATION: VITAL SIGNS: Temperature 97.8, pulse 74, respirations 26, and blood pressure 118/58. HEENT: Normocephalic and atraumatic. Pale conjunctivae. NECK: Supple. There is a trach in place. LUNGS: Decreased breath sound, right more than left. ABDOMEN: Soft. Minimal tenderness to palpation in suprapubic area. Bowel sounds are present but hypoactive. G-tube in place. No rebound. No guarding. No peritoneal sign. EXTREMITIES: No cyanosis. No clubbing. No edema. LABORATORY DATA: White count 10.9, hemoglobin 8.8, hematocrit 28.5, and platelet count 268,000. Sodium 136, potassium 3.7, BUN 17, creatinine 0.6. Liver function grossly normal except for alkaline phosphatase of 185 and lipase of 153. Imaging studies, the patient had CT of the abdomen and pelvis which showed evidence of gallstones but no evidence of acute cholecystitis, volume loss in the right hemithorax most probably from prior surgery, cardiomegaly, heterogeneous liver perfusion, and trace left pleural effusion. ASSESSMENT AND PLAN: This is a 67-year-old female, admitted to the hospital with abdominal pain. At this time, the etiology is unknown. There is no evidence of any active bleeding. CT did not show any acute intra-abdominal process. The patient had mildly elevated white count which is now normalized. The patient is tolerating G-tube feeding at 30 mL an hour. Again, source of this pain at this time is unknown. Plan will be to continue current care, start the patient on PPI daily, and send repeat laboratories including CBC, CMP, amylase, lipase for tomorrow. Send the stool for OB. Do anemia workup. We will make further recommendation as the results of the above studies are back. We are also going to order abdominal ultrasound just as another imaging of the gallbladder given CT showed evidence of gallstones. I want to thank Dr. Walker for this kind referral. Claude Travis M.D. DR: Elzbieta JOB#: [id number] CC:
[2017-05-05] MEDS: Zolpidem 5mg tab GT PRN (23:48)
[2017-05-06] VITALS (7 sets, daily range): BP systolic 103–153; BP diastolic 52–79
[2017-05-06] MEDS: Norco 5mg/325mg tab GT PRN ×3 (03:19→19:54)
[2017-05-06 06:17] LABS: BASOPHILS % (AUTO) 0.6 % (0.0-2.0); EOSINOPHILS % (AUTO) 1.5 % (0.0-3.0); LYMPHOCYTES % (AUTO) 20.5 % (20.0-45.0); MEAN CORPUSCULAR HEMOGLOBIN 29.6 PG (27.0-31.0); MEAN CORPUSCULAR HGB CONC 32.7 G/DL (32.0-36.0); MEAN CORPUSCULAR VOLUME 90 FL (80-99); MEAN PLATELET VOLUME 6.2 FL (6.5-10.1); MONOCYTES % (AUTO) 8.9 % (1.0-10.0); NEUTROPHILS % (AUTO) 68.5 % (45.0-75.0); PLATELET COUNT 288 K/UL (150-450); RED BLOOD COUNT 2.92 M/UL (4.20-5.40); RED CELL DISTRIBUTION WIDTH 18.5 % (11.6-14.8); WHITE BLOOD COUNT 8.2 K/UL (4.8-10.8)
[2017-05-06 06:38] LABS: ALANINE AMINOTRANSFERASE 14 U/L (12-78); ALBUMIN/GLOBULIN RATIO 0.7 (1.0-2.7); AMYLASE 33 U/L (25-115); ANION GAP 4 (5-15); ASPARTATE AMINO TRANSFERASE 19 U/L (15-37); CALCIUM 8.8 MG/DL (8.5-10.1); CARBON DIOXIDE 31 MMOL/L (21-32); CHLORIDE 106 MMOL/L (98-107); CREATININE 0.5 MG/DL (0.55-1.30); GLOMERULAR FILTRATION RATE > 60 mL/min (>60); LIPASE 87 U/L (73-393); POTASSIUM 3.3 MMOL/L (3.5-5.1); SODIUM 141 MMOL/L (136-145); TOTAL PROTEIN 5.8 G/DL (6.4-8.2)
[2017-05-06 06:50] LABS: IRON 30 ug/dL (50-175); TOTAL IRON BINDING CAPACITY 192 ug/dL (250-450)
--- NOTE | 2017-05-06 08:40 | Pulmonology Progress Note ---
Assessment/Plan Assessment/Plan IMPRESSION respiratory failure trach gt leukocytosis possible sepsis chronic encephalopathy abdominal pain PLAN empiric antibiotics respiratory care IV hydration IV antibiotics supportive care ID evaluation GI evaluation dc once stable and cleared by consultants on the ventilator Subjective Allergies: Coded Allergies: HEPARIN (Verified Allergy, Mild, Shortness of Breath, 05/03/17) ALBUTEROL (Verified Allergy, Unknown, 05/03/17) CODEINE (Verified Allergy, Unknown, 05/03/17) TRAMADOL (Verified Allergy, Unknown, 05/03/17) WARFARIN (Verified Allergy, Unknown, 05/03/17) Subjective abdominal pain and some breathing issues still present orders given Objective Last 24 Hour Vital Signs Date Time Temp Pulse Resp B/P (MAP) Pulse Ox O2 Delivery O2 Flow Rate FiO2 05/06/17 06:43 72 20 30 05/06/17 05:07 68 25 30 05/06/17 04:18 97.7 05/06/17 04:00 30.0 05/06/17 04:00 69 05/06/17 04:00 97.7 77 30 147/79 100 Mechanical Ventilator 30 05/06/17 03:33 76 28 30 05/06/17 00:49 66 19 30 05/06/17 00:00 97.7 69 26 120/52 99 Mechanical Ventilator 30 05/06/17 00:00 30.0 05/06/17 00:00 68 05/05/17 23:02 109 22 30 05/05/17 22:09 100 22 100 Mechanical Ventilator 30 05/05/17 22:05 69 17 100 Mechanical Ventilator 30 05/05/17 22:05 30 05/05/17 20:42 69 26 30 05/05/17 20:00 97.0 84 28 148/74 99 Mechanical Ventilator 30 05/05/17 20:00 75 05/05/17 20:00 30.0 05/05/17 19:03 77 28 30 05/05/17 16:39 74 26 30 05/05/17 16:00 97.8 74 26 119/57 99 Mechanical Ventilator 30 05/05/17 16:00 30.0 05/05/17 16:00 71 05/05/17 15:11 79 18 30 05/05/17 15:11 79 19 100 Mechanical Ventilator 30 05/05/17 15:00 77 18 100 Mechanical Ventilator 30 05/05/17 12:30 76 25 30 10/15/17 12:00 30.0 05/05/17 12:00 97.8 71 16 118/58 100 Mechanical Ventilator 30 05/05/17 11:14 69 17 100 Mechanical Ventilator 30 05/05/17 11:07 68 17 100 Mechanical Ventilator 30 05/05/17 11:07 68 26 30 Objective WDWN NAD reduced breath sounds bilaterally without rhonchi or wheeze [id number] without MRG NABS nontender no HSM; GT trach no CCE nonfocal Microbiology Date/Time Source Procedure Growth Status 05/03/17 08:55 Blood Blood Culture - Preliminary NO GROWTH AFTER 48 HOURS Resulted 05/03/17 08:55 Blood Blood Culture - Preliminary NO GROWTH AFTER 48 HOURS Resulted 05/03/17 08:50 Nasal Nares MRSA Culture - Final Staphylococcus Aureus - Mrsa Complete 05/03/17 09:26 Urine,Clean Catch Urine Culture - Final Enterococcus Faecium - Vre Complete 05/03/17 08:50 Rectum VRE Culture - Final Enterococcus Faecium - Vre Complete Laboratory Tests 05/06/17 04:50: White Blood Count 8.2, Red Blood Count 2.92L, Hemoglobin 8.6L, Hematocrit 26.4L , Mean Corpuscular Volume 90, Mean Corpuscular Hemoglobin 29.6, Mean Corpuscular Hemoglobin Concent 32.7, Red Cell Distribution Width 18.5H, Platelet Count 288, Mean Platelet Volume 6.2L, Neutrophils (%) (Auto) 68.5, Lymphocytes (%) (Auto) 20.5, Monocytes (%) (Auto) 8.9, Eosinophils (%) (Auto) 1.5, Basophils (%) (Auto) 0.6, Sodium Level 141, Potassium Level 3.3L, Chloride Level 106, Carbon Dioxide Level 31, Anion Gap 4L, Blood Urea Nitrogen 4L, Creatinine 0.5L, Estimat Glomerular Filtration Rate > 60, Glucose Level 85, Calcium Level 8.8, Iron Level 30L, Total Iron Binding Capacity 192L, Percent Iron Saturation 16, Unsaturated Iron Binding 162, Total Bilirubin 0.4, Aspartate Amino Transf (AST/SGOT) 19, Alanine Aminotransferase (ALT/SGPT) 14, Alkaline Phosphatase 138H, Total Protein 5.8L, Albumin 2.4L, Globulin 3.4, Albumin/Globulin Ratio 0.7L, Amylase Level 33, Lipase 87 Current Medications Medications (Trade) Dose Ordered Sig/Yg Route PRN Reason Start Time Stop Time Status Last Admin Dose Admin Acetaminophen (Tylenol) 650 mg Q4H PRN GT Mild Pain/Temp > 100.5 05/03/17 16:30 06/02/17 16:29 05/04/17 13:53 Acetaminophen/ Hydrocodone Bitart ([place] 5/325) 1 tab Q4H PRN GT Moderate Pain (Pain Scale 4-6) 05/04/17 21:45 05/11/17 21:44 05/06/17 03:19 Acetaminophen/ Hydrocodone Bitart ([place] 5/325) 2 tab Q4H PRN GT Severe Pain (Pain Scale 7-10) 05/04/17 21:45 05/11/17 21:44 05/05/17 05:40 Al Hydroxide/Mg Hydroxide (Mylanta) 30 ml Q6H PRN GT Abdominal cramps 05/03/17 16:30 06/02/17 16:29 Chlorhexidine Gluconate (Caro-Hex 2%) 1 applic 2100 TOPIC 05/06/17 21:00 06/04/17 01:59 Lansoprazole (Prevacid) 30 mg BID GT 05/04/17 09:00 06/03/17 08:59 05/05/17 17:44 Levalbuterol HCl (Xopenex) 1.25 mg EVERY 4 HOURS PRN HHN Bronchospasm 05/04/17 15:45 05/09/17 15:44 05/05/17 22:05 Lidocaine HCl (Xylocaine 1% 30ml) 30 ml ONCE ONCE INJ 05/06/17 10:15 05/06/17 10:16 Linezolid 300 ml @ 300 mls/hr Q12HR IVPB 05/05/17 12:00 05/12/17 11:59 05/05/17 20:37 Sodium Chloride 1,000 ml @ 100 mls/hr Q10H IV 05/03/17 17:30 06/02/17 17:29 05/06/17 06:57 Zolpidem Tartrate (Ambien) 5 mg HSPRN PRN GT Insomnia 05/03/17 16:30 05/10/17 16:29 05/05/17 23:48 GAGE CASAREZ May 06, 2017 08:40
--- NOTE | 2017-05-06 09:04 | Infectious Diseases Prog Note ---
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 VDRF Abdominal pain Anemia P: Continue Zyvox Subjective ROS Limited/Unobtainable: Yes Respiratory: Reports: dry cough Gastrointestinal/Abdominal: Reports: other - lowe abdominal pain Allergies: Coded Allergies: HEPARIN (Verified Allergy, Mild, Shortness of Breath, 05/03/17) ALBUTEROL (Verified Allergy, Unknown, 05/03/17) CODEINE (Verified Allergy, Unknown, 05/03/17) TRAMADOL (Verified Allergy, Unknown, 05/03/17) WARFARIN (Verified Allergy, Unknown, 05/03/17) Objective Vital Signs Last 24 Hour Vital Signs Date Time Temp Pulse Resp B/P (MAP) Pulse Ox O2 Delivery O2 Flow Rate FiO2 05/06/17 08:00 98.0 80 18 153/79 99 Mechanical Ventilator 30 05/06/17 06:43 72 20 30 05/06/17 05:07 68 25 30 05/06/17 04:18 97.7 05/06/17 04:00 30.0 05/06/17 04:00 69 05/06/17 04:00 97.7 77 30 147/79 100 Mechanical Ventilator 30 05/06/17 03:33 76 28 30 05/06/17 00:49 66 19 30 05/06/17 00:00 97.7 69 26 120/52 99 Mechanical Ventilator 30 05/06/17 00:00 30.0 05/06/17 00:00 68 05/05/17 23:02 109 22 30 05/05/17 22:09 100 22 100 Mechanical Ventilator 30 05/05/17 22:05 69 17 100 Mechanical Ventilator 30 05/05/17 22:05 30 05/05/17 20:42 69 26 30 05/05/17 20:00 97.0 84 28 148/74 99 Mechanical Ventilator 30 05/05/17 20:00 75 05/05/17 20:00 30.0 05/05/17 19:03 77 28 30 05/05/17 16:39 74 26 30 05/05/17 16:00 97.8 74 26 119/57 99 Mechanical Ventilator 30 05/05/17 16:00 30.0 05/05/17 16:00 71 05/05/17 15:11 79 18 30 05/05/17 15:11 79 19 100 Mechanical Ventilator 30 05/05/17 15:00 77 18 100 Mechanical Ventilator 30 05/05/17 12:30 76 25 30 05/05/17 12:00 30.0 05/05/17 12:00 97.8 71 16 118/58 100 Mechanical Ventilator 30 05/05/17 11:14 69 17 100 Mechanical Ventilator 30 05/05/17 11:07 68 17 100 Mechanical Ventilator 30 05/05/17 11:07 68 26 30 Height (Feet): 5 Height (Inches): 4.00 Weight (Pounds): 120 General Appearance: no acute distress HEENT: status post trach Respiratory/Chest: other - on ventilator Cardiovascular: normal rate Abdomen: other - GT feeding, tender in lower abdomen, suprapubic area Extremities: no edema Neurologic/Psychiatric: alert, responsive Microbiology Date/Time Source Procedure Growth Status 05/03/17 09:26 Urine,Clean Catch Urine Culture - Final Enterococcus Faecium - Vre Complete Laboratory Tests Test 05/06/17 04:50 White Blood Count 8.2 K/UL (4.8-10.8) Red Blood Count 2.92 M/UL (4.20-5.40) L Hemoglobin 8.6 G/DL (12.0-16.0) L Hematocrit 26.4 % (37.0-47.0) L Mean Corpuscular Volume 90 FL (80-99) Mean Corpuscular Hemoglobin 29.6 PG (27.0-31.0) Mean Corpuscular Hemoglobin Concent 32.7 G/DL (32.0-36.0) Red Cell Distribution Width 18.5 % (11.6-14.8) H Platelet Count 288 K/UL (150-450) Mean Platelet Volume 6.2 FL (6.5-10.1) L Neutrophils (%) (Auto) 68.5 % (45.0-75.0) Lymphocytes (%) (Auto) 20.5 % (20.0-45.0) Monocytes (%) (Auto) 8.9 % (1.0-10.0) Eosinophils (%) (Auto) 1.5 % (0.0-3.0) Basophils (%) (Auto) 0.6 % (0.0-2.0) Sodium Level 141 MMOL/L (136-145) Potassium Level 3.3 MMOL/L (3.5-5.1) L Chloride Level 106 MMOL/L (98-107) Carbon Dioxide Level 31 MMOL/L (21-32) Anion Gap 4 (5-15) L Blood Urea Nitrogen 4 mg/dL (7-18) L Creatinine 0.5 MG/DL (0.55-1.30) L Estimat Glomerular Filtration Rate > 60 mL/min (>60) Glucose Level 85 MG/DL (74-106) Calcium Level 8.8 MG/DL (8.5-10.1) Iron Level 30 ug/dL (50-175) L Total Iron Binding Capacity 192 ug/dL (250-450) L Percent Iron Saturation 16 % (15-50) Unsaturated Iron Binding 162 ug/dL (112-346) Total Bilirubin 0.4 MG/DL (0.2-1.0) Aspartate Amino Transf (AST/SGOT) 19 U/L (15-37) Alanine Aminotransferase (ALT/SGPT) 14 U/L (12-78) Alkaline Phosphatase 138 U/L (46-116) H Total Protein 5.8 G/DL (6.4-8.2) L Albumin 2.4 G/DL (3.4-5.0) L Globulin 3.4 g/dL Albumin/Globulin Ratio 0.7 (1.0-2.7) L Amylase Level 33 U/L (25-115) Lipase 87 U/L (73-393) Current Medications Medications (Trade) Dose Ordered Sig/Yg Route PRN Reason Start Time Stop Time Status Last Admin Dose Admin Acetaminophen (Tylenol) 650 mg Q4H PRN GT Mild Pain/Temp > 100.5 05/03/17 16:30 06/02/17 16:29 05/04/17 13:53 Acetaminophen/ Hydrocodone Bitart ([place] 5/325) 1 tab Q4H PRN GT Moderate Pain (Pain Scale 4-6) 05/04/17 21:45 05/11/17 21:44 05/06/17 03:19 Acetaminophen/ Hydrocodone Bitart ([place] 5/325) 2 tab Q4H PRN GT Severe Pain (Pain Scale 7-10) 05/04/17 21:45 05/11/17 21:44 05/05/17 05:40 Al Hydroxide/Mg Hydroxide (Mylanta) 30 ml Q6H PRN GT Abdominal cramps 05/03/17 16:30 06/02/17 16:29 Chlorhexidine Gluconate (Caro-Hex 2%) 1 applic 2100 TOPIC 05/06/17 21:00 06/04/17 01:59 Lansoprazole (Prevacid) 30 mg BID GT 05/04/17 09:00 06/03/17 08:59 05/05/17 17:44 Levalbuterol HCl (Xopenex) 1.25 mg EVERY 4 HOURS PRN HHN Bronchospasm 05/04/17 15:45 05/09/17 15:44 05/05/17 22:05 Lidocaine HCl (Xylocaine 1% 30ml) 30 ml ONCE ONCE INJ 05/06/17 10:15 05/06/17 10:16 Linezolid 300 ml @ 300 mls/hr Q12HR IVPB 05/05/17 12:00 05/12/17 11:59 05/05/17 20:37 Sodium Chloride 1,000 ml @ 100 mls/hr Q10H IV 05/03/17 17:30 06/02/17 17:29 05/06/17 06:57 Zolpidem Tartrate (Ambien) 5 mg HSPRN PRN GT Insomnia 05/03/17 16:30 05/10/17 16:29 05/05/17 23:48 SOLA GARCÍA May 06, 2017 09:04
--- NOTE | 2017-05-06 09:53 | General Progress Note ---
Assessment/Plan Assessment/Plan Assessment - Resp failure - s/p Trach - s/p recent PEG with GT site pain with gentle GT manipulation, ? cutaneous nerve entrapment/irritation Recommendations - Trial of neurontin - pain team evaluation for trigger point injection at GT site (both for Dx and Rx) - will consider topical lido - continue TF Subjective Allergies: Coded Allergies: HEPARIN (Verified Allergy, Mild, Shortness of Breath, 05/03/17) ALBUTEROL (Verified Allergy, Unknown, 05/03/17) CODEINE (Verified Allergy, Unknown, 05/03/17) TRAMADOL (Verified Allergy, Unknown, 05/03/17) WARFARIN (Verified Allergy, Unknown, 05/03/17) Subjective Above noted patient c/o GT site pain says was just at [facility] - records noted d/w PEG placed at [facility] about 3-4 weeks ago has been hurting since placed CT at [facility] and [facility] negative Objective Last 24 Hour Vital Signs Date Time Temp Pulse Resp B/P (MAP) Pulse Ox O2 Delivery O2 Flow Rate FiO2 05/06/17 08:56 75 22 30 05/06/17 08:00 98.0 80 18 153/79 99 Mechanical Ventilator 30 05/06/17 06:43 72 20 30 05/06/17 05:07 68 25 30 05/06/17 04:18 97.7 05/06/17 04:00 30.0 05/06/17 04:00 69 05/06/17 04:00 97.7 77 30 147/79 100 Mechanical Ventilator 30 05/06/17 03:33 76 28 30 05/06/17 00:49 66 19 30 05/06/17 00:00 97.7 69 26 120/52 99 Mechanical Ventilator 30 05/06/17 00:00 30.0 05/06/17 00:00 68 05/05/17 23:02 109 22 30 05/05/17 22:09 100 22 100 Mechanical Ventilator 30 05/05/17 22:05 69 17 100 Mechanical Ventilator 30 05/05/17 22:05 30 05/05/17 20:42 69 26 30 05/05/17 20:00 97.0 84 28 148/74 99 Mechanical Ventilator 30 05/05/17 20:00 75 05/05/17 20:00 30.0 05/05/17 19:03 77 28 30 05/05/17 16:39 74 26 30 05/05/17 16:00 97.8 74 26 119/57 99 Mechanical Ventilator 30 05/05/17 16:00 30.0 05/05/17 16:00 71 05/05/17 15:11 79 18 30 05/05/17 15:11 79 19 100 Mechanical Ventilator 30 05/05/17 15:00 77 18 100 Mechanical Ventilator 30 05/05/17 12:30 76 25 30 05/05/17 12:00 30.0 05/05/17 12:00 97.8 71 16 118/58 100 Mechanical Ventilator 30 05/05/17 11:14 69 17 100 Mechanical Ventilator 30 05/05/17 11:07 68 17 100 Mechanical Ventilator 30 05/05/17 11:07 68 26 30 Laboratory Tests 05/06/17 04:50: White Blood Count 8.2, Red Blood Count 2.92L, Hemoglobin 8.6L, Hematocrit 26.4L , Mean Corpuscular Volume 90, Mean Corpuscular Hemoglobin 29.6, Mean Corpuscular Hemoglobin Concent 32.7, Red Cell Distribution Width 18.5H, Platelet Count 288, Mean Platelet Volume 6.2L, Neutrophils (%) (Auto) 68.5, Lymphocytes (%) (Auto) 20.5, Monocytes (%) (Auto) 8.9, Eosinophils (%) (Auto) 1.5, Basophils (%) (Auto) 0.6, Sodium Level 141, Potassium Level 3.3L, Chloride Level 106, Carbon Dioxide Level 31, Anion Gap 4L, Blood Urea Nitrogen 4L, Creatinine 0.5L, Estimat Glomerular Filtration Rate > 60, Glucose Level 85, Calcium Level 8.8, Iron Level 30L, Total Iron Binding Capacity 192L, Percent Iron Saturation 16, Unsaturated Iron Binding 162, Total Bilirubin 0.4, Aspartate Amino Transf (AST/SGOT) 19, Alanine Aminotransferase (ALT/SGPT) 14, Alkaline Phosphatase 138H, Total Protein 5.8L, Albumin 2.4L, Globulin 3.4, Albumin/Globulin Ratio 0.7L, Amylase Level 33, Lipase 87 Height (Feet): 5 Height (Inches): 4.00 Weight (Pounds): 120 Objective Elder aa woman NCAT supple CTA RRR soft, flat abd, GT site appears normal with no d/c or swelling but (++) pain elicited with gentle GT manipulation, some milder lower abd TTP as well no edema MANJINDER HERNANDEZ May 06, 2017 09:53
[2017-05-06] MEDS ORDERED: Lidocaine 1% Plain 30 ml INJ ONE (10:15)
[2017-05-06] MEDS ORDERED: KCl 10% 40mEq/30ml liquid NG ONE (11:00)
[2017-05-06] MEDS: Levalbuterol Inh UD 1.25mg/0.5ml HHN PRN ×2 (11:06→17:15)
--- NOTE | 2017-05-06 14:29 | Diagnostic Imaging Report ---
Indication: Abdominal pain Technique: Sanchez-scale and duplex images of the upper abdomen were obtained Comparison: Reference made to 05/03/2015 CT scan Findings: Gallbladder demonstrates a gallstone and sludge. No gallbladder wall thickening or pericholecystic fluid. Sonographic Torres's sign is negative. Common bile duct measures 8 mm in diameter. There is mild intrahepatic biliary ductal dilatation.. Liver demonstrates coarsened echogenicity. No focal abnormality. Portal vein and hepatic veins are patent. Pancreas is unremarkable. Spleen is unremarkable. Left kidney measures 11.4 cm in length. Right kidney measures 12.8 cm length. Both kidneys demonstrate increased echogenicity There is no hydronephrosis. Left kidney demonstrates non-shadowing bright echoes in the left renal sinus, as well as a small cyst . Non-aneurysmal abdominal aorta . There is a gastrostomy tube in place. No abnormal fluid is seen surrounding the gastrostomy. There is trace ascites fluid. Small left pleural effusion is demonstrated. Apparent fluid collection adjacent to the spleen most likely represents a distended stomach, as no fluid collection is demonstrated on ultrasound of 3 days earlier. Impression: Gallstones and sludge Mildly ectatic common bile duct and mildly dilated central intrahepatic bile ducts. Downstream obstruction not excludable. Correlate with liver function tests, consider MRCP for better characterization graph trace ascites Small left pleural effusion Fluid in the left upper quadrant, likely distended stomach Gastrostomy Non-shadowing bright echoes in the left renal sinus, most likely artifactual as no stones are demonstrated on recent CT Incidental finding small left renal cyst
[2017-05-06] MEDS ORDERED: Dyna-Hex 2% Top Sol 2oz TOPIC SCH ×2 (20:00)
[2017-05-07] VITALS: BP 114/62
[2017-05-07 04:00] VITALS: BP 109/53
[2017-05-07] MEDS: Levalbuterol Inh UD 1.25mg/0.5ml HHN PRN ×2 (04:32→18:20)
[2017-05-07] MEDS ORDERED: Lidocaine 1% Plain 30 ml INJ PRN (06:00)
--- NOTE | 2017-05-07 07:23 | General Progress Note ---
Assessment/Plan Assessment/Plan Assessment - Resp failure - s/p Trach - s/p recent PEG with GT site pain with gentle GT manipulation, ? cutaneous nerve entrapment/irritation Recommendations - Trial of neurontin - pain team evaluation for trigger point injection at GT site (both for Dx and Rx) - will consider topical lido - continue TF - elevate HOB Subjective Allergies: Coded Allergies: HEPARIN (Verified Allergy, Mild, Shortness of Breath, 05/03/17) ALBUTEROL (Verified Allergy, Unknown, 05/03/17) CODEINE (Verified Allergy, Unknown, 05/03/17) TRAMADOL (Verified Allergy, Unknown, 05/03/17) WARFARIN (Verified Allergy, Unknown, 05/03/17) Subjective Above noted says she is comfortable but does c/o pain when abd touched tolerating GT feeds Objective Last 24 Hour Vital Signs Date Time Temp Pulse Resp B/P (MAP) Pulse Ox O2 Delivery O2 Flow Rate FiO2 05/07/17 06:58 73 21 30 05/07/17 04:34 71 18 100 Mechanical Ventilator 30 05/07/17 04:33 74 12 100 Mechanical Ventilator 30 05/07/17 04:33 74 12 30 05/07/17 04:33 30 05/07/17 04:03 81 25 30 05/07/17 04:00 30.0 05/07/17 04:00 74 05/07/17 04:00 97.2 73 20 109/53 99 Mechanical Ventilator 30.0 30 05/07/17 01:21 78 22 30 05/07/17 00:00 98.4 69 18 114/62 99 Mechanical Ventilator 30.0 30 05/07/17 00:00 73 05/06/17 23:22 74 22 30 05/06/17 21:15 77 25 30 05/06/17 20:00 30.0 05/06/17 20:00 125 05/06/17 20:00 98.2 99 26 103/66 100 Mechanical Ventilator 30.0 30 05/06/17 19:59 99 30 30 05/06/17 18:00 98.2 86 17 138/79 100 Mechanical Ventilator 05/06/17 17:26 81 18 100 Mechanical Ventilator 30 05/06/17 17:16 82 21 100 Mechanical Ventilator 30 05/06/17 17:16 30 05/06/17 16:38 75 21 30 05/06/17 16:00 98.2 86 17 138/79 100 Mechanical Ventilator 30 05/06/17 16:00 71 05/06/17 16:00 30.0 05/06/17 14:41 81 22 30 05/06/17 12:38 85 22 30 05/06/17 12:27 98.0 05/06/17 12:00 30.0 05/06/17 12:00 97.0 97 20 146/71 99 Mechanical Ventilator 30 05/06/17 12:00 85 05/06/17 11:08 91 24 100 Mechanical Ventilator 30 05/06/17 11:08 90 24 30 05/06/17 10:55 90 27 100 Mechanical Ventilator 30 05/06/17 10:55 30 05/06/17 08:56 75 22 30 05/06/17 08:00 30.0 05/06/17 08:00 98.0 80 18 153/79 99 Mechanical Ventilator 30 05/06/17 08:00 84 Height (Feet): 5 Height (Inches): 4.00 Weight (Pounds): 120 Objective Elder aa woman NCAT supple CTA RRR soft, flat abd, GT site appears normal with no d/c or swelling but (++) pain elicited with gentle GT manipulation, some milder lower abd TTP as well no edema MANJINDER HERNANDEZ May 07, 2017 07:23
--- NOTE | 2017-05-07 07:52 | Pulmonology Progress Note ---
Assessment/Plan Assessment/Plan IMPRESSION respiratory failure trach gt leukocytosis possible sepsis chronic encephalopathy abdominal pain PLAN empiric antibiotics- ID to clear respiratory care IV hydration IV antibiotics supportive care ID evaluation GI evaluation pain evaluation dc once stable and cleared by consultants on the ventilator and maintain impression, plan, and exam edited and reviewed in detail care discussed with RN Subjective Allergies: Coded Allergies: HEPARIN (Verified Allergy, Mild, Shortness of Breath, 05/03/17) ALBUTEROL (Verified Allergy, Unknown, 05/03/17) CODEINE (Verified Allergy, Unknown, 05/03/17) TRAMADOL (Verified Allergy, Unknown, 05/03/17) WARFARIN (Verified Allergy, Unknown, 05/03/17) Subjective abdominal pain and some breathing issues still present orders given pain management called Objective Last 24 Hour Vital Signs Date Time Temp Pulse Resp B/P (MAP) Pulse Ox O2 Delivery O2 Flow Rate FiO2 05/07/17 06:58 73 21 30 05/07/17 04:34 71 18 100 Mechanical Ventilator 30 05/07/17 04:33 74 12 100 Mechanical Ventilator 30 05/07/17 04:33 74 12 30 05/07/17 04:33 30 05/07/17 04:03 81 25 30 05/07/17 04:00 30.0 05/07/17 04:00 74 05/07/17 04:00 97.2 73 20 109/53 99 Mechanical Ventilator 30.0 30 05/07/17 01:21 78 22 30 05/07/17 00:00 98.4 69 18 114/62 99 Mechanical Ventilator 30.0 30 05/07/17 00:00 73 05/06/17 23:22 74 22 30 05/06/17 21:15 77 25 30 05/06/17 20:00 30.0 05/06/17 20:00 125 05/06/17 20:00 98.2 99 26 103/66 100 Mechanical Ventilator 30.0 30 05/06/17 19:59 99 30 30 05/06/17 18:00 98.2 86 17 138/79 100 Mechanical Ventilator 05/06/17 17:26 81 18 100 Mechanical Ventilator 30 05/06/17 17:16 82 21 100 Mechanical Ventilator 30 05/06/17 17:16 30 05/06/17 16:38 75 21 30 05/06/17 16:00 98.2 86 17 138/79 100 Mechanical Ventilator 30 05/06/17 16:00 71 05/06/17 16:00 30.0 05/06/17 14:41 81 22 30 05/06/17 12:38 85 22 30 05/06/17 12:27 98.0 05/06/17 12:00 30.0 05/06/17 12:00 97.0 97 20 146/71 99 Mechanical Ventilator 30 05/06/17 12:00 85 05/06/17 11:08 91 24 100 Mechanical Ventilator 30 05/06/17 11:08 90 24 30 05/06/17 10:55 90 27 100 Mechanical Ventilator 30 05/06/17 10:55 30 05/06/17 08:56 75 22 30 05/06/17 08:00 30.0 05/06/17 08:00 98.0 80 18 153/79 99 Mechanical Ventilator 30 05/06/17 08:00 84 Objective WDWN NAD reduced breath sounds bilaterally without rhonchi or wheeze [id number] without MRG NABS nontender no HSM; GT trach no CCE nonfocal Current Medications Medications (Trade) Dose Ordered Sig/Yg Route PRN Reason Start Time Stop Time Status Last Admin Dose Admin Acetaminophen (Tylenol) 650 mg Q4H PRN GT Mild Pain/Temp > 100.5 05/03/17 16:30 06/02/17 16:29 05/04/17 13:53 Acetaminophen/ Hydrocodone Bitart ([place] 5/325) 1 tab Q4H PRN GT Moderate Pain (Pain Scale 4-6) 05/04/17 21:45 05/11/17 21:44 05/06/17 03:19 Acetaminophen/ Hydrocodone Bitart ([place] 5/325) 2 tab Q4H PRN GT Severe Pain (Pain Scale 7-10) 05/04/17 21:45 05/11/17 21:44 05/06/17 19:54 Al Hydroxide/Mg Hydroxide (Mylanta) 30 ml Q6H PRN GT Abdominal cramps 05/03/17 16:30 06/02/17 16:29 Chlorhexidine Gluconate (Caro-Hex 2%) 1 applic DAILY@2000 TOPIC 05/07/17 20:00 06/06/17 19:59 Gabapentin (Neurontin) 100 mg THREE TIMES A DAY GT 05/06/17 13:00 11/15/17 12:59 05/06/17 18:07 Lansoprazole (Prevacid) 30 mg BID GT 05/04/17 09:00 06/03/17 08:59 05/06/17 18:07 Levalbuterol HCl (Xopenex) 1.25 mg EVERY 4 HOURS PRN HHN Bronchospasm 05/04/17 15:45 05/09/17 15:44 05/07/17 04:32 Lidocaine HCl (Xylocaine 1% 30ml) 30 ml ONCE PRN INJ PICC LINE 05/07/17 06:00 05/07/17 23:59 Linezolid 300 ml @ 300 mls/hr Q12HR IVPB 05/05/17 12:00 05/12/17 11:59 05/06/17 21:13 Sodium Chloride 1,000 ml @ 100 mls/hr Q10H IV 05/03/17 17:30 06/02/17 17:29 05/07/17 01:30 Zolpidem Tartrate (Ambien) 5 mg HSPRN PRN GT Insomnia 05/03/17 16:30 05/10/17 16:29 05/05/17 23:48 GAGE CASAREZ May 07, 2017 07:52
[2017-05-07 08:00] VITALS: BP 133/96
--- NOTE | 2017-05-07 08:32 | Consultation ---
History of Present Illness General Date patient seen: May 07, 2017 Chief Complaint: General Complaint Present Illness Allergies: Coded Allergies: HEPARIN (Verified Allergy, Mild, Shortness of Breath, 05/03/17) ALBUTEROL (Verified Allergy, Unknown, 05/03/17) CODEINE (Verified Allergy, Unknown, 05/03/17) TRAMADOL (Verified Allergy, Unknown, 05/03/17) WARFARIN (Verified Allergy, Unknown, 05/03/17) Medication History Scheduled Atorvastatin Calcium* (Atorvastatin Calcium*), 20 MG GT BEDTIME, (Reported) Docusate Sodium* (Docusate Sodium*), 50 MG GT DAILY, (Reported) Famotidine (Famotidine), 40 MG GT DAILY, (Reported) Folic Acid* (Folic Acid*), 1 MG GT DAILY, (Reported) Furosemide* (Lasix*), 20 MG GT DAILY, (Reported) Sucralfate* (Carafate*), 1 GM GT THREE TIMES A DAY, (Reported) Scheduled PRN Hydrocodone/Acetaminophen 5-325* (Hydrocodone/Acetaminophen 5-325*), 1 TAB GT Q6H PRN for For Pain, (Reported) Miscellaneous Medications Levalbuterol Hcl (Levalbuterol Hcl), 1.25 MG IH, (Reported) Patient History Healthcare decision maker Resuscitation status Full Code Advanced Directive on File Yes Physical Exam Last 24 Hour Vital Signs Date Time Temp Pulse Resp B/P (MAP) Pulse Ox O2 Delivery O2 Flow Rate FiO2 05/07/17 06:58 73 21 30 05/07/17 04:34 71 18 100 Mechanical Ventilator 30 05/07/17 04:33 74 12 100 Mechanical Ventilator 30 05/07/17 04:33 74 12 30 05/07/17 04:33 30 05/07/17 04:03 81 25 30 05/07/17 04:00 30.0 05/07/17 04:00 74 05/07/17 04:00 97.2 73 20 109/53 99 Mechanical Ventilator 30.0 30 05/07/17 01:21 78 22 30 05/07/17 00:00 98.4 69 18 114/62 99 Mechanical Ventilator 30.0 30 05/07/17 00:00 73 05/06/17 23:22 74 22 30 05/06/17 21:15 77 25 30 05/06/17 20:00 30.0 05/06/17 20:00 125 05/06/17 20:00 98.2 99 26 103/66 100 Mechanical Ventilator 30.0 30 05/06/17 19:59 99 30 30 05/06/17 18:00 98.2 86 17 138/79 100 Mechanical Ventilator 05/06/17 17:26 81 18 100 Mechanical Ventilator 30 05/06/17 17:16 82 21 100 Mechanical Ventilator 30 05/06/17 17:16 30 05/06/17 16:38 75 21 30 05/06/17 16:00 98.2 86 17 138/79 100 Mechanical Ventilator 30 05/06/17 16:00 71 05/06/17 16:00 30.0 05/06/17 14:41 81 22 30 05/06/17 12:38 85 22 30 05/06/17 12:27 98.0 05/06/17 12:00 30.0 05/06/17 12:00 97.0 97 20 146/71 99 Mechanical Ventilator 30 05/06/17 12:00 85 05/06/17 11:08 91 24 100 Mechanical Ventilator 30 05/06/17 11:08 90 24 30 05/06/17 10:55 90 27 100 Mechanical Ventilator 30 05/06/17 10:55 30 05/06/17 08:56 75 22 30 Height (Feet): 5 Height (Inches): 4.00 Weight (Pounds): 120 Medications Current Medications Medications (Trade) Dose Ordered Sig/Yg Route PRN Reason Start Time Stop Time Status Last Admin Dose Admin Acetaminophen (Tylenol) 650 mg Q4H PRN GT Mild Pain/Temp > 100.5 05/03/17 16:30 06/02/17 16:29 05/04/17 13:53 Acetaminophen/ Hydrocodone Bitart ([place] 5/325) 1 tab Q4H PRN GT Moderate Pain (Pain Scale 4-6) 05/04/17 21:45 05/11/17 21:44 05/06/17 03:19 Acetaminophen/ Hydrocodone Bitart ([place] 5/325) 2 tab Q4H PRN GT Severe Pain (Pain Scale 7-10) 05/04/17 21:45 05/11/17 21:44 05/06/17 19:54 Al Hydroxide/Mg Hydroxide (Mylanta) 30 ml Q6H PRN GT Abdominal cramps 05/03/17 16:30 06/02/17 16:29 Chlorhexidine Gluconate (Caro-Hex 2%) 1 applic DAILY@2000 TOPIC 05/07/17 20:00 06/06/17 19:59 Gabapentin (Neurontin) 100 mg THREE TIMES A DAY GT 05/06/17 13:00 06/05/17 12:59 05/06/17 18:07 Lansoprazole (Prevacid) 30 mg BID GT 05/04/17 09:00 06/03/17 08:59 05/06/17 18:07 Levalbuterol HCl (Xopenex) 1.25 mg EVERY 4 HOURS PRN HHN Bronchospasm 05/04/17 15:45 05/09/17 15:44 05/07/17 04:32 Lidocaine HCl (Xylocaine 1% 30ml) 30 ml ONCE PRN INJ PICC LINE 05/07/17 06:00 05/07/17 23:59 Linezolid 300 ml @ 300 mls/hr Q12HR IVPB 05/05/17 12:00 05/12/17 11:59 05/06/17 21:13 Sodium Chloride 1,000 ml @ 100 mls/hr Q10H IV 05/03/17 17:30 06/02/17 17:29 05/07/17 01:30 Zolpidem Tartrate (Ambien) 5 mg HSPRN PRN GT Insomnia 05/03/17 16:30 05/10/17 16:29 05/05/17 23:48 Assessment/Plan Assessment/Plan (1) Intractable abdominal pain (2) G-Tube r/o cutaneous nerve entrapment/irritation (3) Respiratory malfunction (4) Tracheostomy on ventilator seen dictated AJ CARDONA May 07, 2017 08:32
[2017-05-07] MEDS: Norco 10mg/325mg tab GT PRN (09:01)
--- NOTE | 2017-05-07 10:32 | Infectious Diseases Prog Note ---
Assessment/Plan Assessment/Plan antibiotics : linezolid A 1. VRE UTI 2. 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 CHF 6. respiratory failure P 1. continue linezolid 4 more days 2. will follow up cultures Subjective ROS Limited/Unobtainable: Yes Allergies: Coded Allergies: HEPARIN (Verified Allergy, Mild, Shortness of Breath, 05/03/17) ALBUTEROL (Verified Allergy, Unknown, 05/03/17) CODEINE (Verified Allergy, Unknown, 05/03/17) TRAMADOL (Verified Allergy, Unknown, 05/03/17) WARFARIN (Verified Allergy, Unknown, 05/03/17) Objective Vital Signs Last 24 Hour Vital Signs Date Time Temp Pulse Resp B/P (MAP) Pulse Ox O2 Delivery O2 Flow Rate FiO2 05/07/17 09:24 89 31 30 05/07/17 08:00 76 05/07/17 08:00 96.6 139 37 133/96 100 Mechanical Ventilator 30 05/07/17 08:00 30.0 05/07/17 06:58 73 21 30 05/07/17 04:34 71 18 100 Mechanical Ventilator 30 05/07/17 04:33 74 12 100 Mechanical Ventilator 30 05/07/17 04:33 74 12 30 05/07/17 04:33 30 05/07/17 04:03 81 25 30 05/07/17 04:00 30.0 05/07/17 04:00 74 05/07/17 04:00 97.2 73 20 109/53 99 Mechanical Ventilator 30.0 30 05/07/17 01:21 78 22 30 05/07/17 00:00 98.4 69 18 114/62 99 Mechanical Ventilator 30.0 30 05/07/17 00:00 73 05/06/17 23:22 74 22 30 05/06/17 21:15 77 25 30 05/06/17 20:00 30.0 05/06/17 20:00 125 05/06/17 20:00 98.2 99 26 103/66 100 Mechanical Ventilator 30.0 30 05/06/17 19:59 99 30 30 05/06/17 18:00 98.2 86 17 138/79 100 Mechanical Ventilator 05/06/17 17:26 81 18 100 Mechanical Ventilator 30 05/06/17 17:16 82 21 100 Mechanical Ventilator 30 05/06/17 17:16 30 05/06/17 16:38 75 21 30 05/06/17 16:00 98.2 86 17 138/79 100 Mechanical Ventilator 30 05/06/17 16:00 71 05/06/17 16:00 30.0 05/06/17 14:41 81 22 30 05/06/17 12:38 85 22 30 05/06/17 12:27 98.0 05/06/17 12:00 30.0 05/06/17 12:00 97.0 97 20 146/71 99 Mechanical Ventilator 30 05/06/17 12:00 85 05/06/17 11:08 91 24 100 Mechanical Ventilator 30 05/06/17 11:08 90 24 30 05/06/17 10:55 90 27 100 Mechanical Ventilator 30 05/06/17 10:55 30 Height (Feet): 5 Height (Inches): 4.00 Weight (Pounds): 120 HEENT: status post trach Respiratory/Chest: lungs clear Cardiovascular: normal rate, regular rhythm, no gallop/murmur Abdomen: soft, non tender, other - GT Extremities: no edema HERB COLÓN May 07, 2017 10:32
[2017-05-07 12:00] VITALS: BP 116/65
[2017-05-07 16:00] VITALS: BP 147/84
--- NOTE | 2017-05-07 16:43 | Diagnostic Imaging Report ---
Indication: terminal worker venous access Findings: After the indications, procedure, risks, complications, and alternatives of the procedure were explained, written informed consent was obtained. The left upper extremity was prepped with alcohol. All elements of maximal sterile barrier technique were followed including usage of a cap, mask, sterile gown, sterile gloves, hand hygiene and a large sterile sheet. Sonographic evaluation of the upper extremity was performed demonstrating a patent and compressible basilic vein. Access was obtained under real-time ultrasound guidance and digital image was saved and archived. An .018 wire was introduced. Needle exchanged for a 5 [place] peel-away sheath. Measurements were obtained. A 5 [place] dual-lumen Power PICC line catheter was cut to 40 cm and introduced over the wire. Peel-away sheath and wire were removed.Catheter was secured to the skin using 2-0 Prolene suture. Both ports aspirate and flush easily. Post procedure chest x-ray demonstrates good position of the PICC line catheter within the SVC. Impression: Successful placement of an upper extremity PICC line catheter
--- NOTE | 2017-05-07 18:16 | Consultation ---
History of Present Illness General Chief Complaint: General Complaint Present Illness HPI 67-year-old female admitted on 05/03/2017 from long-term facility, had abdominal pain and tachycardia. the pt is confuse and gets agitated unable to provide hx. Allergies: Coded Allergies: HEPARIN (Verified Allergy, Mild, Shortness of Breath, 05/03/17) ALBUTEROL (Verified Allergy, Unknown, 05/03/17) CODEINE (Verified Allergy, Unknown, 05/03/17) TRAMADOL (Verified Allergy, Unknown, 05/03/17) WARFARIN (Verified Allergy, Unknown, 05/03/17) Medication History Scheduled Atorvastatin Calcium* (Atorvastatin Calcium*), 20 MG GT BEDTIME, (Reported) Docusate Sodium* (Docusate Sodium*), 50 MG GT DAILY, (Reported) Famotidine (Famotidine), 40 MG GT DAILY, (Reported) Folic Acid* (Folic Acid*), 1 MG GT DAILY, (Reported) Furosemide* (Lasix*), 20 MG GT DAILY, (Reported) Sucralfate* (Carafate*), 1 GM GT THREE TIMES A DAY, (Reported) Scheduled PRN Hydrocodone/Acetaminophen 5-325* (Hydrocodone/Acetaminophen 5-325*), 1 TAB GT Q6H PRN for For Pain, (Reported) Miscellaneous Medications Levalbuterol Hcl (Levalbuterol Hcl), 1.25 MG IH, (Reported) Patient History History Provided By: Medical Record, PMD Healthcare decision maker Resuscitation status Full Code Advanced Directive on File Yes Past Medical/Surgical History Past Medical/Surgical History: (1) Respiratory failure (2) Severe sepsis (3) Tracheostomy dependence (4) UTI (urinary tract infection) Review of Systems Constitutional: Reports: malaise, weakness Psychiatric: Reports: anxiety, emotional problems Physical Exam General Appearance: no apparent distress, lethargic, confused, thin Neurologic: disoriented, unresponsiveness Last 24 Hour Vital Signs Date Time Temp Pulse Resp B/P (MAP) Pulse Ox O2 Delivery O2 Flow Rate FiO2 05/07/17 18:10 89 20 100 Mechanical Ventilator 30 05/07/17 18:09 30 05/07/17 18:09 86 20 100 Mechanical Ventilator 30 05/07/17 18:08 79 23 30 05/07/17 16:00 98.2 89 36 147/84 100 05/07/17 16:00 30.0 05/07/17 15:14 78 28 30 05/07/17 13:00 80 28 30 05/07/17 12:00 98.0 74 25 116/65 100 Mechanical Ventilator 30 05/07/17 12:00 100.0 05/07/17 11:49 77 05/07/17 10:51 76 28 30 05/07/17 09:24 89 31 30 05/07/17 09:20 100.0 05/07/17 08:00 76 05/07/17 08:00 96.6 139 37 133/96 100 Mechanical Ventilator 30 05/07/17 08:00 30.0 05/07/17 06:58 73 21 30 05/07/17 04:34 71 18 100 Mechanical Ventilator 30 05/07/17 04:33 74 12 100 Mechanical Ventilator 30 05/07/17 04:33 74 12 30 05/07/17 04:33 30 05/07/17 04:03 81 25 30 05/07/17 04:00 30.0 05/07/17 04:00 74 05/07/17 04:00 97.2 73 20 109/53 99 Mechanical Ventilator 30.0 30 05/07/17 01:21 78 22 30 05/07/17 00:00 98.4 69 18 114/62 99 Mechanical Ventilator 30.0 30 05/07/17 00:00 73 05/06/17 23:22 74 22 30 05/06/17 21:15 77 25 30 05/06/17 20:00 30.0 05/06/17 20:00 125 05/06/17 20:00 98.2 99 26 103/66 100 Mechanical Ventilator 30.0 30 05/06/17 19:59 99 30 30 Intake and Output 05/07/17 05/08/17 19:00 07:00 Intake Total 2800 ml Balance 2800 ml IV Total 2800 ml Height (Feet): 5 Height (Inches): 4.00 Weight (Pounds): 120 Medications Current Medications Medications (Trade) Dose Ordered Sig/Yg Route PRN Reason Start Time Stop Time Status Last Admin Dose Admin Acetaminophen (Tylenol) 650 mg Q4H PRN GT Mild Pain/Temp > 100.5 05/03/17 16:30 06/02/17 16:29 05/04/17 13:53 Acetaminophen/ Hydrocodone Bitart ([place] 10) 1 ea Q4H PRN GT Moderate Pain (Pain Scale 4-6) 05/07/17 09:00 05/14/17 08:59 05/07/17 09:01 Al Hydroxide/Mg Hydroxide (Mylanta) 30 ml Q6H PRN GT Abdominal cramps 05/03/17 16:30 06/02/17 16:29 Chlorhexidine Gluconate (Caro-Hex 2%) 1 applic DAILY@2000 TOPIC 05/07/17 20:00 06/06/17 19:59 Gabapentin (Neurontin) 100 mg THREE TIMES A DAY GT 05/06/17 13:00 06/05/17 12:59 05/07/17 18:00 Hydromorphone HCl (Dilaudid) 1 mg Q4H PRN IVP Severe Pain (Pain Scale 7-10) 05/07/17 09:00 05/14/17 08:59 Lansoprazole (Prevacid) 30 mg BID GT 05/04/17 09:00 06/03/17 08:59 05/07/17 18:00 Levalbuterol HCl (Xopenex) 1.25 mg EVERY 4 HOURS PRN HHN Bronchospasm 05/04/17 15:45 05/09/17 15:44 05/07/17 04:32 Lidocaine HCl (Xylocaine 1% 30ml) 30 ml ONCE PRN INJ PICC LINE 05/07/17 06:00 05/07/17 23:59 Linezolid 300 ml @ 300 mls/hr Q12HR IVPB 05/05/17 12:00 05/12/17 11:59 05/07/17 08:35 Sodium Chloride 1,000 ml @ 100 mls/hr Q10H IV 05/03/17 17:30 06/02/17 17:29 05/07/17 12:26 Zolpidem Tartrate (Ambien) 5 mg HSPRN PRN GT Insomnia 05/03/17 16:30 05/10/17 16:29 05/05/17 23:48 Assessment/Plan Status: not improved Assessment/Plan encephalopathy -risperdal 1mg q8 hr hold when sedated Marcus Calabrese M.D. May 07, 2017 18:16
[2017-05-07 20:00] VITALS: BP 146/67
[2017-05-07] MEDS: Dyna-Hex 2% Top Sol 2oz TOPIC SCH (22:34)
[2017-05-07] MEDS: HYDROmorphone 1mg/ml Carpuject IVP PRN (23:55)
[2017-05-08] VITALS: BP 117/53
--- NOTE | 2017-05-08 03:00 | Consultation ---
DATE OF CONSULTATION: 05/07/2017 PAIN MANAGEMENT CONSULTATION CONSULTING PHYSICIAN: Jae Shaw M.D. REFERRING PHYSICIAN: Cortes Walker M.D. PHYSICIAN VP SOFTWARE SUPPORT: Justina Boggs CHIEF COMPLAINT: Abdominal pain. HISTORY OF PRESENT ILLNESS: The patient is a 67-year-old female, who is being seen on the [facility] for initial comprehensive pain management consultation. The patient is complaining of abdominal pain at this time. The patient is nonverbal due to trach, on vent, caused by respiratory failure. She had PEG tube placed with G-tube site pain. At this time, we were consulted so that the patient would have adequate pain control while here in the hospital. At this time, the patient is on [place] with minimal pain relief. Check Examiner feels that the PEG-tube and G-tube site is caused by possible cutaneous nerve entrapment irritation. PAST MEDICAL HISTORY: Dysphagia, respiratory failure, paroxysmal atrial fibrillation, and gastrointestinal bleed. PAST SURGICAL HISTORY: G-tube placement and tracheostomy. MEDICATIONS: Atorvastatin, docusate, famotidine, folic acid, Lasix, Carafate, [place], and levalbuterol. ALLERGIES: Albuterol, codeine, heparin, tramadol, and warfarin. SOCIAL HISTORY: As per chart, denies history of tobacco use, alcohol abuse, and drug abuse. REVIEW OF SYSTEMS: Unable to obtain due to the patient's status, however, does have abdominal discomfort. PHYSICAL EXAMINATION: GENERAL: Alert and awake. VITAL SIGNS: Blood pressure 109/53, heart rate is 73, oxygen saturation is 99% on ventilator, and temperature 97 degrees Fahrenheit. HEENT: PERRLA. NECK: Tracheostomy noted. Decreased range of motion. Tenderness to palpation. LUNGS: Decreased breath sounds bilaterally. HEART: S1 and S2 regular. ABDOMEN: Tenderness to palpation with PEG tube noted. BACK: Range of motion is decreased in flexion and extension. EXTREMITIES: Upper extremity range of motion is full in all directions. Motor is intact. No cyanosis. No clubbing. No edema. Sensory is intact. Reflexes are not obtainable. No adenopathy. Lower extremity range of motion is decreased due to the patient's clinical condition. Motor is intact. No cyanosis. No edema. Sensory is intact. Reflexes are not obtainable. No adenopathy. ASSESSMENT AND PLAN: This is a 67-year-old female with respiratory failure, tracheostomy, on vent, intractable abdominal pain, and s/p gastrostomy tube placement r/o cutaneous nerve entrapment irritation. The patient will be discontinued off the [place], increase to [place] 10/325 mg one tablet every four hours hours as needed for moderate pain and will be started on Dilaudid 1 mg IV every four hours as needed for severe pain. The patient was discussed with Dr. Shaw and Dr. Shaw concurred. We will follow the patient. Thank you very much for the courtesy of this consultation. Jae Shaw M.D. AYO Boggs DR: SEAMUS JOB#: [id number] CC: TROY
[2017-05-08 04:00] VITALS: BP 126/76
[2017-05-08] MEDS: Norco 10mg/325mg tab GT PRN (04:48)
[2017-05-08 05:26] LABS: BASOPHILS % (AUTO) 1.2 % (0.0-2.0); EOSINOPHILS % (AUTO) 2.2 % (0.0-3.0); LYMPHOCYTES % (AUTO) 23.9 % (20.0-45.0); MEAN CORPUSCULAR HEMOGLOBIN 30.3 PG (27.0-31.0); MEAN CORPUSCULAR HGB CONC 33.3 G/DL (32.0-36.0); MEAN CORPUSCULAR VOLUME 91 FL (80-99); MEAN PLATELET VOLUME 5.9 FL (6.5-10.1); MONOCYTES % (AUTO) 10.5 % (1.0-10.0); NEUTROPHILS % (AUTO) 62.2 % (45.0-75.0); PLATELET COUNT 250 K/UL (150-450); RED BLOOD COUNT 2.72 M/UL (4.20-5.40); WHITE BLOOD COUNT 6.8 K/UL (4.8-10.8)
[2017-05-08] MEDS: Levalbuterol Inh UD 1.25mg/0.5ml HHN PRN ×3 (05:35→23:10)
[2017-05-08 06:04] LABS: ALANINE AMINOTRANSFERASE 12 U/L (12-78); ALBUMIN/GLOBULIN RATIO 0.7 (1.0-2.7); ANION GAP 3 mmol/L (5-15); ASPARTATE AMINO TRANSFERASE 20 U/L (15-37); CALCIUM 8.5 MG/DL (8.5-10.1); CARBON DIOXIDE 33 MMOL/L (21-32); CHLORIDE 106 MMOL/L (98-107); CREATININE 0.4 MG/DL (0.55-1.30); GLOMERULAR FILTRATION RATE > 60 mL/min (>60); POTASSIUM 3.1 MMOL/L (3.5-5.1); SODIUM 142 MMOL/L (136-145); TOTAL PROTEIN 5.3 G/DL (6.4-8.2)
--- NOTE | 2017-05-08 07:03 | General Progress Note ---
Assessment/Plan Assessment/Plan Assessment - Resp failure - s/p Trach - s/p recent PEG with GT site pain with gentle GT manipulation, ? cutaneous nerve entrapment/irritation Recommendations - Trial of neurontin - pain team f/u - will consider topical lido - continue TF - elevate HOB Subjective Allergies: Coded Allergies: HEPARIN (Verified Allergy, Mild, Shortness of Breath, 05/03/17) ALBUTEROL (Verified Allergy, Unknown, 05/03/17) CODEINE (Verified Allergy, Unknown, 05/03/17) TRAMADOL (Verified Allergy, Unknown, 05/03/17) WARFARIN (Verified Allergy, Unknown, 05/03/17) Subjective Above noted no new symptoms pain team evaluation noted Objective Last 24 Hour Vital Signs Date Time Temp Pulse Resp B/P (MAP) Pulse Ox O2 Delivery O2 Flow Rate FiO2 05/08/17 05:34 129 20 100 Mechanical Ventilator 30 05/08/17 05:34 30 05/08/17 05:30 87 25 30 05/08/17 04:00 30.0 05/08/17 04:00 97.0 100 18 126/76 100 Mechanical Ventilator 100 05/08/17 03:24 114 23 30 05/08/17 02:31 72 05/08/17 01:43 82 18 30 05/08/17 00:00 72 05/08/17 00:00 30.0 05/08/17 00:00 98.1 72 18 117/53 100 Mechanical Ventilator 72 05/07/17 23:42 87 20 30 05/07/17 21:44 85 20 30 05/07/17 20:00 97.7 70 20 146/67 100 Mechanical Ventilator 70 05/07/17 20:00 30.0 05/07/17 19:55 71 05/07/17 19:36 71 19 30 05/07/17 18:10 89 20 100 Mechanical Ventilator 30 05/07/17 18:09 30 05/07/17 18:09 86 20 100 Mechanical Ventilator 30 05/07/17 18:08 79 23 30 05/07/17 16:00 98.2 89 36 147/84 100 05/07/17 16:00 30.0 05/07/17 16:00 115 05/07/17 15:14 78 28 30 05/07/17 13:00 80 28 30 05/07/17 12:00 98.0 74 25 116/65 100 Mechanical Ventilator 30 05/07/17 12:00 100.0 05/07/17 11:49 77 05/07/17 10:51 76 28 30 05/07/17 09:24 89 31 30 05/07/17 09:20 100.0 05/07/17 08:00 76 05/07/17 08:00 96.6 139 37 133/96 100 Mechanical Ventilator 30 05/07/17 08:00 30.0 Laboratory Tests 05/08/17 04:00: White Blood Count 6.8, Red Blood Count 2.72L, Hemoglobin 8.2L, Hematocrit 24.7L , Mean Corpuscular Volume 91, Mean Corpuscular Hemoglobin 30.3, Mean Corpuscular Hemoglobin Concent 33.3, Red Cell Distribution Width 19.0H, Platelet Count 250, Mean Platelet Volume 5.9L, Neutrophils (%) (Auto) 62.2, Lymphocytes (%) (Auto) 23.9, Monocytes (%) (Auto) 10.5H, Eosinophils (%) (Auto) 2.2, Basophils (%) (Auto) 1.2, Sodium Level 142, Potassium Level 3.1L, Chloride Level 106, Carbon Dioxide Level 33H, Anion Gap 3L, Blood Urea Nitrogen 2L, Creatinine 0.4L, Estimat Glomerular Filtration Rate > 60, Glucose Level 79, Calcium Level 8.5, Total Bilirubin 0.4, Aspartate Amino Transf (AST/SGOT) 20, Alanine Aminotransferase (ALT/SGPT) 12, Alkaline Phosphatase 121H, Total Protein 5.3L, Albumin 2.2L, Globulin 3.1, Albumin/Globulin Ratio 0.7L Height (Feet): 5 Height (Inches): 4.00 Weight (Pounds): 120 Objective Elder aa woman NCAT supple CTA RRR soft, flat abd, GT site appears normal with no d/c or swelling but (++) pain elicited with gentle GT manipulation, some milder lower abd TTP as well no edema MANJINDER HERNANDEZ May 08, 2017 07:03
[2017-05-08 08:00] VITALS: BP 110/53
--- NOTE | 2017-05-08 08:26 | General Progress Note ---
Assessment/Plan Assessment/Plan (1) Intractable abdominal pain (2) G-Tube r/o cutaneous nerve entrapment/irritation (3) Respiratory malfunction (4) Tracheostomy on ventilator Pt will be continued on [place] and Dilaudid. The Neurontin will be increased to 300mg. D/w Dr. Shaw and he concurred. Subjective Date patient seen: May 08, 2017 Time patient seen: 07:45 - am Allergies: Coded Allergies: HEPARIN (Verified Allergy, Mild, Shortness of Breath, 05/03/17) ALBUTEROL (Verified Allergy, Unknown, 05/03/17) CODEINE (Verified Allergy, Unknown, 05/03/17) TRAMADOL (Verified Allergy, Unknown, 05/03/17) WARFARIN (Verified Allergy, Unknown, 05/03/17) Subjective REVIEW OF SYSTEMS: Unable to obtain due to the patient's status, however, does have abdominal discomfort. SUBJECTIVE: Pt is in bed and reports that the pain has been controlled better on the change of medication. Pt does not c/o increased sensitive to light touch at the site of peg tube insertion however does c/o burning pain in the abdominal area. At this time we will increase the Neurontin to asses if it will reduce the possible neuropathic pain. Objective Last 24 Hour Vital Signs Date Time Temp Pulse Resp B/P (MAP) Pulse Ox O2 Delivery O2 Flow Rate FiO2 05/08/17 07:20 133 25 40 05/08/17 05:34 129 20 100 Mechanical Ventilator 30 05/08/17 05:34 30 05/08/17 05:30 87 25 30 05/08/17 04:00 30.0 05/08/17 04:00 97.0 100 18 126/76 100 Mechanical Ventilator 100 05/08/17 03:24 114 23 30 05/08/17 02:31 72 05/08/17 01:43 82 18 30 05/08/17 00:00 72 05/08/17 00:00 30.0 05/08/17 00:00 98.1 72 18 117/53 100 Mechanical Ventilator 72 05/07/17 23:42 87 20 30 05/07/17 21:44 85 20 30 05/07/17 20:00 97.7 70 20 146/67 100 Mechanical Ventilator 70 05/07/17 20:00 30.0 05/07/17 19:55 71 05/07/17 19:36 71 19 30 05/07/17 18:10 89 20 100 Mechanical Ventilator 30 05/07/17 18:09 30 05/07/17 18:09 86 20 100 Mechanical Ventilator 30 05/07/17 18:08 79 23 30 05/07/17 16:00 98.2 89 36 147/84 100 05/07/17 16:00 30.0 05/07/17 16:00 115 05/07/17 15:14 78 28 30 05/07/17 13:00 80 28 30 05/07/17 12:00 98.0 74 25 116/65 100 Mechanical Ventilator 30 05/07/17 12:00 100.0 05/07/17 11:49 77 05/07/17 10:51 76 28 30 05/07/17 09:24 89 31 30 05/07/17 09:20 100.0 Laboratory Tests 05/08/17 04:00: White Blood Count 6.8, Red Blood Count 2.72L, Hemoglobin 8.2L, Hematocrit 24.7L , Mean Corpuscular Volume 91, Mean Corpuscular Hemoglobin 30.3, Mean Corpuscular Hemoglobin Concent 33.3, Red Cell Distribution Width 19.0H, Platelet Count 250, Mean Platelet Volume 5.9L, Neutrophils (%) (Auto) 62.2, Lymphocytes (%) (Auto) 23.9, Monocytes (%) (Auto) 10.5H, Eosinophils (%) (Auto) 2.2, Basophils (%) (Auto) 1.2, Sodium Level 142, Potassium Level 3.1L, Chloride Level 106, Carbon Dioxide Level 33H, Anion Gap 3L, Blood Urea Nitrogen 2L, Creatinine 0.4L, Estimat Glomerular Filtration Rate > 60, Glucose Level 79, Calcium Level 8.5, Total Bilirubin 0.4, Aspartate Amino Transf (AST/SGOT) 20, Alanine Aminotransferase (ALT/SGPT) 12, Alkaline Phosphatase 121H, Total Protein 5.3L, Albumin 2.2L, Globulin 3.1, Albumin/Globulin Ratio 0.7L Height (Feet): 5 Height (Inches): 4.00 Weight (Pounds): 120 Objective GENERAL: Alert and awake. HEENT: PERRLA. NECK: Tracheostomy noted. Decreased range of motion. Tenderness to palpation. LUNGS: Decreased breath sounds bilaterally. HEART: S1 and S2 regular. ABDOMEN: Tenderness to palpation with PEG tube noted. BACK: Range of motion is decreased in flexion and extension. EXTREMITIES: No cyanosis. No edema. NEURO: No changes. AJ CARDONA May 08, 2017 08:26
[2017-05-08] MEDS: Gabapentin 300 MG/6 ML Soln GT SCH ×3 (09:30→17:39)
--- NOTE | 2017-05-08 11:44 | Infectious Diseases Prog Note ---
Assessment/Plan Assessment/Plan antibiotics : linezolid A 1. VRE UTI 2. 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 CHF 6. respiratory failure P 1. continue linezolid 3 more days 2. will follow up cultures Subjective ROS Limited/Unobtainable: Yes Allergies: Coded Allergies: HEPARIN (Verified Allergy, Mild, Shortness of Breath, 05/03/17) ALBUTEROL (Verified Allergy, Unknown, 05/03/17) CODEINE (Verified Allergy, Unknown, 05/03/17) TRAMADOL (Verified Allergy, Unknown, 05/03/17) WARFARIN (Verified Allergy, Unknown, 05/03/17) Objective Vital Signs Last 24 Hour Vital Signs Date Time Temp Pulse Resp B/P (MAP) Pulse Ox O2 Delivery O2 Flow Rate FiO2 05/08/17 08:00 30.0 05/08/17 08:00 97.4 126 35 110/53 100 Mechanical Ventilator 70 05/08/17 07:20 133 25 40 05/08/17 05:34 129 20 100 Mechanical Ventilator 30 05/08/17 05:34 30 05/08/17 05:30 87 25 30 05/08/17 04:00 30.0 05/08/17 04:00 97.0 100 18 126/76 100 Mechanical Ventilator 100 05/08/17 03:24 114 23 30 05/08/17 02:31 72 05/08/17 01:43 82 18 30 05/08/17 00:00 72 05/08/17 00:00 30.0 05/08/17 00:00 98.1 72 18 117/53 100 Mechanical Ventilator 72 05/07/17 23:42 87 20 30 05/07/17 21:44 85 20 30 05/07/17 20:00 97.7 70 20 146/67 100 Mechanical Ventilator 70 05/07/17 20:00 30.0 05/07/17 19:55 71 05/07/17 19:36 71 19 30 05/07/17 18:10 89 20 100 Mechanical Ventilator 30 05/07/17 18:09 30 05/07/17 18:09 86 20 100 Mechanical Ventilator 30 05/07/17 18:08 79 23 30 05/07/17 16:00 98.2 89 36 147/84 100 05/07/17 16:00 30.0 05/07/17 16:00 115 05/07/17 15:14 78 28 30 05/07/17 13:00 80 28 30 05/07/17 12:00 98.0 74 25 116/65 100 Mechanical Ventilator 30 05/07/17 12:00 100.0 05/07/17 11:49 77 Height (Feet): 5 Height (Inches): 4.00 Weight (Pounds): 120 HEENT: status post trach Respiratory/Chest: lungs clear Cardiovascular: normal rate, regular rhythm, no gallop/murmur Abdomen: soft, non tender, other - GT Extremities: no edema, other - left arm PICC Laboratory Tests Test 05/08/17 04:00 White Blood Count 6.8 K/UL (4.8-10.8) Red Blood Count 2.72 M/UL (4.20-5.40) L Hemoglobin 8.2 G/DL (12.0-16.0) L Hematocrit 24.7 % (37.0-47.0) L Mean Corpuscular Volume 91 FL (80-99) Mean Corpuscular Hemoglobin 30.3 PG (27.0-31.0) Mean Corpuscular Hemoglobin Concent 33.3 G/DL (32.0-36.0) Red Cell Distribution Width 19.0 % (11.6-14.8) H Platelet Count 250 K/UL (150-450) Mean Platelet Volume 5.9 FL (6.5-10.1) L Neutrophils (%) (Auto) 62.2 % (45.0-75.0) Lymphocytes (%) (Auto) 23.9 % (20.0-45.0) Monocytes (%) (Auto) 10.5 % (1.0-10.0) H Eosinophils (%) (Auto) 2.2 % (0.0-3.0) Basophils (%) (Auto) 1.2 % (0.0-2.0) Sodium Level 142 MMOL/L (136-145) Potassium Level 3.1 MMOL/L (3.5-5.1) L Chloride Level 106 MMOL/L (98-107) Carbon Dioxide Level 33 MMOL/L (21-32) H Anion Gap 3 mmol/L (5-15) L Blood Urea Nitrogen 2 mg/dL (7-18) L Creatinine 0.4 MG/DL (0.55-1.30) L Estimat Glomerular Filtration Rate > 60 mL/min (>60) Glucose Level 79 MG/DL (74-106) Calcium Level 8.5 MG/DL (8.5-10.1) Total Bilirubin 0.4 MG/DL (0.2-1.0) Aspartate Amino Transf (AST/SGOT) 20 U/L (15-37) Alanine Aminotransferase (ALT/SGPT) 12 U/L (12-78) Alkaline Phosphatase 121 U/L (46-116) H Total Protein 5.3 G/DL (6.4-8.2) L Albumin 2.2 G/DL (3.4-5.0) L Globulin 3.1 g/dL Albumin/Globulin Ratio 0.7 (1.0-2.7) L HERB COLÓN May 08, 2017 11:44
[2017-05-08 12:00] VITALS: BP 112/67
[2017-05-08] MEDS ORDERED: KCl 10% 40mEq/30ml liquid NG ONE (12:30)
--- NOTE | 2017-05-08 13:55 | Pulmonology Progress Note ---
Assessment/Plan Assessment/Plan IMPRESSION respiratory failure trach gt leukocytosis possible sepsis chronic encephalopathy abdominal pain PLAN ID clearance respiratory care IV hydration- dc IV antibiotics supportive care ID evaluation GI evaluation pain evaluation dc planning impression, plan, and exam edited and reviewed in detail care discussed with RN Subjective Allergies: Coded Allergies: HEPARIN (Verified Allergy, Mild, Shortness of Breath, 05/03/17) ALBUTEROL (Verified Allergy, Unknown, 05/03/17) CODEINE (Verified Allergy, Unknown, 05/03/17) TRAMADOL (Verified Allergy, Unknown, 05/03/17) WARFARIN (Verified Allergy, Unknown, 05/03/17) Subjective abdominal pain and some breathing issues noted pain management noted orders given Objective Last 24 Hour Vital Signs Date Time Temp Pulse Resp B/P (MAP) Pulse Ox O2 Delivery O2 Flow Rate FiO2 05/08/17 12:37 87 05/08/17 12:00 97.5 96 22 112/67 100 Mechanical Ventilator 40 05/08/17 12:00 30.0 05/08/17 08:00 30.0 05/08/17 08:00 97.4 126 35 110/53 100 Mechanical Ventilator 70 05/08/17 07:20 133 25 40 05/08/17 05:34 129 20 100 Mechanical Ventilator 30 05/08/17 05:34 30 05/08/17 05:30 87 25 30 05/08/17 04:00 30.0 05/08/17 04:00 97.0 100 18 126/76 100 Mechanical Ventilator 100 05/08/17 03:24 114 23 30 05/08/17 02:31 72 05/08/17 01:43 82 18 30 05/08/17 00:00 72 05/08/17 00:00 30.0 05/08/17 00:00 98.1 72 18 117/53 100 Mechanical Ventilator 72 05/07/17 23:42 87 20 30 05/07/17 21:44 85 20 30 05/07/17 20:00 97.7 70 20 146/67 100 Mechanical Ventilator 70 05/07/17 20:00 30.0 05/07/17 19:55 71 05/07/17 19:36 71 19 30 05/07/17 18:10 89 20 100 Mechanical Ventilator 30 05/07/17 18:09 30 05/07/17 18:09 86 20 100 Mechanical Ventilator 30 05/07/17 18:08 79 23 30 05/07/17 16:00 98.2 89 36 147/84 100 05/07/17 16:00 30.0 05/07/17 16:00 115 05/07/17 15:14 78 28 30 Intake and Output 05/08/17 05/09/17 19:00 07:00 Intake Total 1080 ml Balance 1080 ml IV Total 800 ml Tube Feeding 250 ml Other 30 ml # Voids 2 # Bowel Movements 2 Objective WDWN NAD reduced breath sounds bilaterally without rhonchi or wheeze [id number] without MRG NABS nontender no HSM; GT trach no CCE nonfocal Laboratory Tests 05/08/17 04:00: White Blood Count 6.8, Red Blood Count 2.72L, Hemoglobin 8.2L, Hematocrit 24.7L , Mean Corpuscular Volume 91, Mean Corpuscular Hemoglobin 30.3, Mean Corpuscular Hemoglobin Concent 33.3, Red Cell Distribution Width 19.0H, Platelet Count 250, Mean Platelet Volume 5.9L, Neutrophils (%) (Auto) 62.2, Lymphocytes (%) (Auto) 23.9, Monocytes (%) (Auto) 10.5H, Eosinophils (%) (Auto) 2.2, Basophils (%) (Auto) 1.2, Sodium Level 142, Potassium Level 3.1L, Chloride Level 106, Carbon Dioxide Level 33H, Anion Gap 3L, Blood Urea Nitrogen 2L, Creatinine 0.4L, Estimat Glomerular Filtration Rate > 60, Glucose Level 79, Calcium Level 8.5, Total Bilirubin 0.4, Aspartate Amino Transf (AST/SGOT) 20, Alanine Aminotransferase (ALT/SGPT) 12, Alkaline Phosphatase 121H, Total Protein 5.3L, Albumin 2.2L, Globulin 3.1, Albumin/Globulin Ratio 0.7L Current Medications Medications (Trade) Dose Ordered Sig/Yg Route PRN Reason Start Time Stop Time Status Last Admin Dose Admin Acetaminophen (Tylenol) 650 mg Q4H PRN GT Mild Pain/Temp > 100.5 05/03/17 16:30 06/02/17 16:29 05/04/17 13:53 Acetaminophen/ Hydrocodone Bitart ([place] 10/325) 1 ea Q4H PRN GT Moderate Pain (Pain Scale 4-6) 05/07/17 09:00 05/14/17 08:59 05/08/17 04:48 Al Hydroxide/Mg Hydroxide (Mylanta) 30 ml Q6H PRN GT Abdominal cramps 05/03/17 16:30 06/02/17 16:29 Chlorhexidine Gluconate (Caro-Hex 2%) 1 applic DAILY@2000 TOPIC 05/07/17 20:00 06/06/17 19:59 05/07/17 22:34 Gabapentin (Neurontin) 300 mg THREE TIMES A DAY GT 05/08/17 09:30 06/07/17 09:29 05/08/17 12:30 Hydromorphone HCl (Dilaudid) 1 mg Q4H PRN IVP Severe Pain (Pain Scale 7-10) 05/07/17 09:00 05/14/17 08:59 05/07/17 23:55 Lansoprazole (Prevacid) 30 mg BID GT 05/04/17 09:00 06/03/17 08:59 05/08/17 08:51 Levalbuterol HCl (Xopenex) 1.25 mg EVERY 4 HOURS PRN HHN Bronchospasm 05/04/17 15:45 05/09/17 15:44 05/08/17 05:35 Linezolid 300 ml @ 300 mls/hr Q12HR IVPB 05/05/17 12:00 05/12/17 11:59 05/08/17 08:51 Risperidone (RisperDAL) 1 mg EVERY 8 HOURS ORAL 05/07/17 22:00 06/06/17 21:59 05/08/17 06:13 Sodium Chloride 1,000 ml @ 100 mls/hr Q10H IV 05/03/17 17:30 06/02/17 17:29 05/08/17 08:26 GAGE CASAREZ May 08, 2017 13:55
[2017-05-08 16:00] VITALS: BP 127/71
[2017-05-08] MEDS ORDERED: Tubing IV Secondary IV ONE (18:53)
[2017-05-08 20:00] VITALS: BP 139/73
[2017-05-08] MEDS: Dyna-Hex 2% Top Sol 2oz TOPIC SCH (20:16)
--- NOTE | 2017-05-08 22:41 | General Progress Note ---
Assessment/Plan Status: not improved, unchanged Assessment/Plan encephalopathy due to [facility] agitation -cont current meds Subjective Constitutional: Reports: malaise, weakness Neurologic/Psychiatric: Reports: anxiety, depressed Allergies: Coded Allergies: HEPARIN (Verified Allergy, Mild, Shortness of Breath, 05/03/17) ALBUTEROL (Verified Allergy, Unknown, 05/03/17) CODEINE (Verified Allergy, Unknown, 05/03/17) TRAMADOL (Verified Allergy, Unknown, 05/03/17) WARFARIN (Verified Allergy, Unknown, 05/03/17) Objective Last 24 Hour Vital Signs Date Time Temp Pulse Resp B/P (MAP) Pulse Ox O2 Delivery O2 Flow Rate FiO2 05/08/17 21:21 81 24 40 05/08/17 20:00 97.9 129 32 139/73 Mechanical Ventilator 40 05/08/17 19:16 91 24 40 05/08/17 17:45 85 12 100 Mechanical Ventilator 30 05/08/17 17:38 116 20 100 Mechanical Ventilator 30 05/08/17 17:38 30 05/08/17 17:06 90 22 40 05/08/17 16:50 89 05/08/17 16:00 30.0 05/08/17 16:00 98.1 89 25 127/71 100 Mechanical Ventilator 40 05/08/17 14:29 96 20 40 05/08/17 12:37 87 05/08/17 12:16 82 20 40 05/08/17 12:00 97.5 96 22 112/67 100 Mechanical Ventilator 40 05/08/17 12:00 30.0 05/08/17 10:56 87 16 40 05/08/17 09:16 113 23 40 05/08/17 08:00 30.0 05/08/17 08:00 97.4 126 35 110/53 100 Mechanical Ventilator 70 05/08/17 07:20 133 25 40 05/08/17 05:34 129 20 100 Mechanical Ventilator 30 05/08/17 05:34 30 05/08/17 05:30 87 25 30 05/08/17 04:00 30.0 05/08/17 04:00 97.0 100 18 126/76 100 Mechanical Ventilator 100 05/08/17 03:24 114 23 30 05/08/17 02:31 72 05/08/17 01:43 82 18 30 05/08/17 00:00 72 05/08/17 00:00 30.0 05/08/17 00:00 98.1 72 18 117/53 100 Mechanical Ventilator 72 05/07/17 23:42 87 20 30 Intake and Output 05/08/17 05/09/17 19:00 07:00 Intake Total 1630 ml Balance 1630 ml IV Total 990 ml Tube Feeding 550 ml Other 90 ml # Voids 3 # Bowel Movements 3 Laboratory Tests 05/08/17 04:00: White Blood Count 6.8, Red Blood Count 2.72L, Hemoglobin 8.2L, Hematocrit 24.7L , Mean Corpuscular Volume 91, Mean Corpuscular Hemoglobin 30.3, Mean Corpuscular Hemoglobin Concent 33.3, Red Cell Distribution Width 19.0H, Platelet Count 250, Mean Platelet Volume 5.9L, Neutrophils (%) (Auto) 62.2, Lymphocytes (%) (Auto) 23.9, Monocytes (%) (Auto) 10.5H, Eosinophils (%) (Auto) 2.2, Basophils (%) (Auto) 1.2, Sodium Level 142, Potassium Level 3.1L, Chloride Level 106, Carbon Dioxide Level 33H, Anion Gap 3L, Blood Urea Nitrogen 2L, Creatinine 0.4L, Estimat Glomerular Filtration Rate > 60, Glucose Level 79, Calcium Level 8.5, Total Bilirubin 0.4, Aspartate Amino Transf (AST/SGOT) 20, Alanine Aminotransferase (ALT/SGPT) 12, Alkaline Phosphatase 121H, Total Protein 5.3L, Albumin 2.2L, Globulin 3.1, Albumin/Globulin Ratio 0.7L Height (Feet): 5 Height (Inches): 4.00 Weight (Pounds): 120 General Appearance: no apparent distress, lethargic, confused, agitated, thin Neurologic: disoriented, unresponsive, depressed affect Marcus Calabrese M.D. May 08, 2017 22:41
[2017-05-09] VITALS: BP 109/63
[2017-05-09] MEDS: HYDROmorphone 1mg/ml Carpuject IVP PRN ×2 (02:34→08:45)
[2017-05-09 04:00] VITALS: BP 133/75
[2017-05-09] MEDS: Levalbuterol Inh UD 1.25mg/0.5ml HHN PRN ×2 (05:24→15:26)
[2017-05-09 08:00] VITALS: BP 155/89
--- NOTE | 2017-05-09 08:55 | Infectious Diseases Prog Note ---
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 VDRF Abdominal pain Anemia P: Continue Zyvox X 2 days Subjective ROS Limited/Unobtainable: Yes Constitutional: Reports: other - dosen't feel good Gastrointestinal/Abdominal: Reports: other - pain Allergies: Coded Allergies: HEPARIN (Verified Allergy, Mild, Shortness of Breath, 05/03/17) ALBUTEROL (Verified Allergy, Unknown, 05/03/17) CODEINE (Verified Allergy, Unknown, 05/03/17) TRAMADOL (Verified Allergy, Unknown, 05/03/17) WARFARIN (Verified Allergy, Unknown, 05/03/17) Objective Vital Signs Last 24 Hour Vital Signs Date Time Temp Pulse Resp B/P (MAP) Pulse Ox O2 Delivery O2 Flow Rate FiO2 05/09/17 08:00 96.6 134 18 155/89 99 Mechanical Ventilator 40 05/09/17 07:34 139 30 30 05/09/17 07:25 139 30 40 05/09/17 05:32 98 12 100 Mechanical Ventilator 30 05/09/17 05:32 30 05/09/17 05:27 102 13 100 Mechanical Ventilator 30 05/09/17 05:18 98 12 40 05/09/17 04:00 30.0 05/09/17 04:00 30.0 05/09/17 04:00 133 05/09/17 04:00 98.2 104 22 133/75 100 Mechanical Ventilator 40 05/09/17 03:13 98 12 40 05/09/17 03:04 97.8 05/09/17 00:53 88 12 40 05/09/17 00:00 30.0 05/09/17 00:00 30.0 05/09/17 00:00 97 05/09/17 00:00 97.8 100 23 109/63 100 Mechanical Ventilator 40 05/08/17 23:19 30 05/08/17 23:19 93 12 100 Mechanical Ventilator 30 05/08/17 23:18 98 13 100 Mechanical Ventilator 30 05/08/17 23:17 98 12 40 05/08/17 21:21 81 24 40 05/08/17 20:00 30.0 05/08/17 20:00 100 05/08/17 20:00 97.9 129 32 139/73 Mechanical Ventilator 40 05/08/17 20:00 30.0 05/08/17 19:16 91 24 40 05/08/17 17:45 85 12 100 Mechanical Ventilator 30 05/08/17 17:38 116 20 100 Mechanical Ventilator 30 05/08/17 17:38 30 05/08/17 17:06 90 22 40 05/08/17 16:50 89 05/08/17 16:00 30.0 05/08/17 16:00 98.1 89 25 127/71 100 Mechanical Ventilator 40 05/08/17 14:29 96 20 40 05/08/17 12:37 87 05/08/17 12:16 82 20 40 05/08/17 12:00 97.5 96 22 112/67 100 Mechanical Ventilator 40 05/08/17 12:00 30.0 05/08/17 10:56 87 16 40 05/08/17 09:16 113 23 40 Height (Feet): 5 Height (Inches): 4.00 Weight (Pounds): 120 General Appearance: no acute distress HEENT: status post trach Respiratory/Chest: rhonchi - bilaterally, other - on ventilator Cardiovascular: tachycardia Abdomen: soft, non tender, other - GT feeding Extremities: no edema Neurologic/Psychiatric: alert, responsive Current Medications Medications (Trade) Dose Ordered Sig/Yg Route PRN Reason Start Time Stop Time Status Last Admin Dose Admin Acetaminophen (Tylenol) 650 mg Q4H PRN GT Mild Pain/Temp > 100.5 05/03/17 16:30 06/02/17 16:29 05/04/17 13:53 Acetaminophen/ Hydrocodone Bitart ([place] 10/325) 1 ea Q4H PRN GT Moderate Pain (Pain Scale 4-6) 05/07/17 09:00 05/14/17 08:59 05/08/17 04:48 Al Hydroxide/Mg Hydroxide (Mylanta) 30 ml Q6H PRN GT Abdominal cramps 05/03/17 16:30 06/02/17 16:29 Chlorhexidine Gluconate (Caro-Hex 2%) 1 applic DAILY@2000 TOPIC 05/07/17 20:00 06/06/17 19:59 05/08/17 20:16 Gabapentin (Neurontin) 300 mg THREE TIMES A DAY GT 05/08/17 09:30 06/07/17 09:29 05/08/17 17:39 Hydromorphone HCl (Dilaudid) 1 mg Q4H PRN IVP Severe Pain (Pain Scale 7-10) 05/07/17 09:00 05/14/17 08:59 05/09/17 08:45 Lansoprazole (Prevacid) 30 mg BID GT 05/04/17 09:00 06/03/17 08:59 05/09/17 08:43 Levalbuterol HCl (Xopenex) 1.25 mg EVERY 4 HOURS PRN HHN Bronchospasm 05/04/17 15:45 05/09/17 15:44 05/09/17 05:24 Linezolid 300 ml @ 300 mls/hr Q12HR IVPB 05/05/17 12:00 05/12/17 11:59 05/09/17 08:43 Risperidone (RisperDAL) 1 mg EVERY 8 HOURS ORAL 05/07/17 22:00 06/06/17 21:59 05/09/17 05:23 SOLA GARCÍA May 09, 2017 08:55
--- NOTE | 2017-05-09 08:56 | General Progress Note ---
Assessment/Plan Assessment/Plan (1) Intractable abdominal pain (2) G-Tube r/o cutaneous nerve entrapment/irritation (3) Respiratory malfunction (4) Tracheostomy on ventilator Pt will be continued on Neurontin, [place] and Dilaudid will be changed to 2mg tab. D/w Dr. Shaw and he concurred. Subjective Date patient seen: May 09, 2017 Time patient seen: 07:45 - am Allergies: Coded Allergies: HEPARIN (Verified Allergy, Mild, Shortness of Breath, 05/03/17) ALBUTEROL (Verified Allergy, Unknown, 05/03/17) CODEINE (Verified Allergy, Unknown, 05/03/17) TRAMADOL (Verified Allergy, Unknown, 05/03/17) WARFARIN (Verified Allergy, Unknown, 05/03/17) Subjective REVIEW OF SYSTEMS: Unable to obtain due to the patient's status, however, does have abdominal discomfort. SUBJECTIVE: Pt is in bed has received 2 doses of the 300mg Neurontin. She is c/ o pain at this time and is waiting for a dose of medication which she repots reduces her pain. Pt explains that her abdominal pain is sharp at this time. Objective Last 24 Hour Vital Signs Date Time Temp Pulse Resp B/P (MAP) Pulse Ox O2 Delivery O2 Flow Rate FiO2 05/09/17 08:00 96.6 134 18 155/89 99 Mechanical Ventilator 40 05/09/17 07:34 139 30 30 05/09/17 07:25 139 30 40 05/09/17 05:32 98 12 100 Mechanical Ventilator 30 05/09/17 05:32 30 05/09/17 05:27 102 13 100 Mechanical Ventilator 30 05/09/17 05:18 98 12 40 05/09/17 04:00 30.0 05/09/17 04:00 30.0 05/09/17 04:00 133 05/09/17 04:00 98.2 104 22 133/75 100 Mechanical Ventilator 40 05/09/17 03:13 98 12 40 05/09/17 03:04 97.8 05/09/17 00:53 88 12 40 05/09/17 00:00 30.0 05/09/17 00:00 30.0 05/09/17 00:00 97 05/09/17 00:00 97.8 100 23 109/63 100 Mechanical Ventilator 40 05/08/17 23:19 30 05/08/17 23:19 93 12 100 Mechanical Ventilator 30 05/08/17 23:18 98 13 100 Mechanical Ventilator 30 05/08/17 23:17 98 12 40 05/08/17 21:21 81 24 40 05/08/17 20:00 30.0 05/08/17 20:00 100 05/08/17 20:00 97.9 129 32 139/73 Mechanical Ventilator 40 05/08/17 20:00 30.0 05/08/17 19:16 91 24 40 05/08/17 17:45 85 12 100 Mechanical Ventilator 30 05/08/17 17:38 116 20 100 Mechanical Ventilator 30 05/08/17 17:38 30 05/08/17 17:06 90 22 40 05/08/17 16:50 89 05/08/17 16:00 30.0 05/08/17 16:00 98.1 89 25 127/71 100 Mechanical Ventilator 40 05/08/17 14:29 96 20 40 05/08/17 12:37 87 05/08/17 12:16 82 20 40 05/08/17 12:00 97.5 96 22 112/67 100 Mechanical Ventilator 40 05/08/17 12:00 30.0 05/08/17 10:56 87 16 40 05/08/17 09:16 113 23 40 Height (Feet): 5 Height (Inches): 4.00 Weight (Pounds): 120 Objective GENERAL: Alert and awake. HEENT: PERRLA. NECK: Tracheostomy noted. Decreased range of motion. Tenderness to palpation. LUNGS: Decreased breath sounds bilaterally. HEART: S1 and S2 regular. ABDOMEN: Tenderness to palpation with PEG tube noted. BACK: Range of motion is decreased in flexion and extension. EXTREMITIES: No cyanosis. No edema. NEURO: No changes. JA CARDONA May 09, 2017 08:56
[2017-05-09] MEDS ORDERED: HYDROmorphone 2mg tab GT PRN (09:00)
[2017-05-09] MEDS ORDERED: HYDROmorphone 2mg tab ORAL PRN (09:00)
--- NOTE | 2017-05-09 09:01 | Pulmonology Progress Note ---
Assessment/Plan Assessment/Plan IMPRESSION respiratory failure trach gt leukocytosis possible sepsis chronic encephalopathy abdominal pain PLAN dc to snf continue same pain management dc planning impression, plan, and exam edited and reviewed in detail care discussed with RN Subjective Allergies: Coded Allergies: HEPARIN (Verified Allergy, Mild, Shortness of Breath, 05/03/17) ALBUTEROL (Verified Allergy, Unknown, 05/03/17) CODEINE (Verified Allergy, Unknown, 05/03/17) TRAMADOL (Verified Allergy, Unknown, 05/03/17) WARFARIN (Verified Allergy, Unknown, 05/03/17) Subjective respiratory issues stable pain management noted orders given Objective Last 24 Hour Vital Signs Date Time Temp Pulse Resp B/P (MAP) Pulse Ox O2 Delivery O2 Flow Rate FiO2 05/09/17 08:00 96.6 134 18 155/89 99 Mechanical Ventilator 40 05/09/17 07:34 139 30 30 05/09/17 07:25 139 30 40 05/09/17 05:32 98 12 100 Mechanical Ventilator 30 05/09/17 05:32 30 05/09/17 05:27 102 13 100 Mechanical Ventilator 30 05/09/17 05:18 98 12 40 05/09/17 04:00 30.0 05/09/17 04:00 30.0 05/09/17 04:00 133 05/09/17 04:00 98.2 104 22 133/75 100 Mechanical Ventilator 40 05/09/17 03:13 98 12 40 05/09/17 03:04 97.8 05/09/17 00:53 88 12 40 05/09/17 00:00 30.0 05/09/17 00:00 30.0 05/09/17 00:00 97 05/09/17 00:00 97.8 100 23 109/63 100 Mechanical Ventilator 40 05/08/17 23:19 30 05/08/17 23:19 93 12 100 Mechanical Ventilator 30 05/08/17 23:18 98 13 100 Mechanical Ventilator 30 05/08/17 23:17 98 12 40 05/08/17 21:21 81 24 40 05/08/17 20:00 30.0 05/08/17 20:00 100 05/08/17 20:00 97.9 129 32 139/73 Mechanical Ventilator 40 05/08/17 20:00 30.0 05/08/17 19:16 91 24 40 05/08/17 17:45 85 12 100 Mechanical Ventilator 30 05/08/17 17:38 116 20 100 Mechanical Ventilator 30 05/08/17 17:38 30 05/08/17 17:06 90 22 40 05/08/17 16:50 89 05/08/17 16:00 30.0 05/08/17 16:00 98.1 89 25 127/71 100 Mechanical Ventilator 40 05/08/17 14:29 96 20 40 05/08/17 12:37 87 05/08/17 12:16 82 20 40 05/08/17 12:00 97.5 96 22 112/67 100 Mechanical Ventilator 40 05/08/17 12:00 30.0 05/08/17 10:56 87 16 40 05/08/17 09:16 113 23 40 Objective WDWN NAD reduced breath sounds bilaterally without rhonchi or wheeze [id number] without MRG NABS nontender no HSM; GT trach no CCE nonfocal Current Medications Medications (Trade) Dose Ordered Sig/Yg Route PRN Reason Start Time Stop Time Status Last Admin Dose Admin Acetaminophen (Tylenol) 650 mg Q4H PRN GT Mild Pain/Temp > 100.5 05/03/17 16:30 06/02/17 16:29 05/04/17 13:53 Acetaminophen/ Hydrocodone Bitart ([place] 10) 1 ea Q4H PRN GT Moderate Pain (Pain Scale 4-6) 05/07/17 09:00 05/14/17 08:59 05/08/17 04:48 Al Hydroxide/Mg Hydroxide (Mylanta) 30 ml Q6H PRN GT Abdominal cramps 05/03/17 16:30 06/02/17 16:29 05/09/17 08:54 Chlorhexidine Gluconate (Caro-Hex 2%) 1 applic DAILY@2000 TOPIC 05/07/17 20:00 06/06/17 19:59 05/08/17 20:16 Gabapentin (Neurontin) 300 mg THREE TIMES A DAY GT 05/08/17 09:30 06/07/17 09:29 05/08/17 17:39 Hydromorphone HCl (Dilaudid) 2 mg Q4H PRN GT severe pain 05/09/17 09:00 05/16/17 08:59 UNV Lansoprazole (Prevacid) 30 mg BID GT 05/04/17 09:00 06/03/17 08:59 05/09/17 08:43 Levalbuterol HCl (Xopenex) 1.25 mg EVERY 4 HOURS PRN HHN Bronchospasm 05/04/17 15:45 05/09/17 15:44 05/09/17 05:24 Linezolid 300 ml @ 300 mls/hr Q12HR IVPB 05/05/17 12:00 05/12/17 11:59 05/09/17 08:43 Risperidone (RisperDAL) 1 mg EVERY 8 HOURS ORAL 05/07/17 22:00 06/06/17 21:59 05/09/17 05:23 GAGE CASAREZ May 09, 2017 09:01
[2017-05-09] MEDS: Gabapentin 300 MG/6 ML Soln GT SCH ×3 (09:39→17:57)
[2017-05-09] MEDS ORDERED: dilTIAZem HCl 25mg/5ml Inj IVP ONE ×2 (11:45→13:30)
[2017-05-09 12:00] VITALS: BP 153/81
[2017-05-09] MEDS: dilTIAZem HCl 30mg tab GT SCH ×3 (12:14→23:45)
[2017-05-09] MEDS ORDERED: dilTIAZem HCl 30mg tab ORAL SCH (13:30)
[2017-05-09 14:10] LABS: ALANINE AMINOTRANSFERASE 16 U/L (12-78); ALBUMIN/GLOBULIN RATIO 0.7 (1.0-2.7); ANION GAP 3 mmol/L (5-15); ASPARTATE AMINO TRANSFERASE 19 U/L (15-37); CALCIUM 8.8 MG/DL (8.5-10.1); CARBON DIOXIDE 36 MMOL/L (21-32); CHLORIDE 102 MMOL/L (98-107); CREATININE 0.4 MG/DL (0.55-1.30); GLOMERULAR FILTRATION RATE > 60 mL/min (>60); MAGNESIUM 1.5 MG/DL (1.8-2.4); POTASSIUM 3.6 MMOL/L (3.5-5.1); SODIUM 141 MMOL/L (136-145); TOTAL PROTEIN 6.3 G/DL (6.4-8.2)
[2017-05-09 16:00] VITALS: BP 107/57
[2017-05-09] MEDS ORDERED: KCl 10% 20 mEq/15ml liquid GT ONE (17:15)
--- NOTE | 2017-05-09 17:49 | General Progress Note ---
Assessment/Plan Assessment/Plan Assessment - Resp failure - s/p Trach - s/p recent PEG with GT site pain with gentle GT manipulation, ? cutaneous nerve entrapment/irritation Recommendations - neurontin - pain team f/u - will consider topical lido - continue TF - elevate HOB Subjective Allergies: Coded Allergies: HEPARIN (Verified Allergy, Mild, Shortness of Breath, 05/03/17) ALBUTEROL (Verified Allergy, Unknown, 05/03/17) CODEINE (Verified Allergy, Unknown, 05/03/17) TRAMADOL (Verified Allergy, Unknown, 05/03/17) WARFARIN (Verified Allergy, Unknown, 05/03/17) Subjective Above noted no new symptoms still with some GT site pain Objective Last 24 Hour Vital Signs Date Time Temp Pulse Resp B/P (MAP) Pulse Ox O2 Delivery O2 Flow Rate FiO2 05/09/17 17:04 86 20 40 05/09/17 16:05 30.0 05/09/17 16:00 97.8 85 20 107/57 100 Mechanical Ventilator 40 05/09/17 15:28 92 15 40 05/09/17 15:26 120 20 100 Mechanical Ventilator 30 05/09/17 13:30 88 151/83 05/09/17 13:17 112 15 40 05/09/17 12:14 139 151/83 05/09/17 12:09 139 151/83 05/09/17 12:00 30.0 05/09/17 12:00 97.0 139 20 153/81 99 Mechanical Ventilator 40 05/09/17 11:34 138 05/09/17 11:13 138 22 40 05/09/17 09:15 122 28 40 05/09/17 08:00 30.0 05/09/17 08:00 129 05/09/17 08:00 96.6 134 18 155/89 99 Mechanical Ventilator 40 05/09/17 07:34 139 30 30 05/09/17 07:25 139 30 40 05/09/17 05:32 98 12 100 Mechanical Ventilator 30 05/09/17 05:32 30 05/09/17 05:27 102 13 100 Mechanical Ventilator 30 05/09/17 05:18 98 12 40 05/09/17 04:00 30.0 05/09/17 04:00 30.0 05/09/17 04:00 133 05/09/17 04:00 98.2 104 22 133/75 100 Mechanical Ventilator 40 05/09/17 03:13 98 12 40 05/09/17 03:04 97.8 05/09/17 00:53 88 12 40 05/09/17 00:00 30.0 05/09/17 00:00 30.0 05/09/17 00:00 97 05/09/17 00:00 97.8 100 23 109/63 100 Mechanical Ventilator 40 05/08/17 23:19 30 05/08/17 23:19 93 12 100 Mechanical Ventilator 30 05/08/17 23:18 98 13 100 Mechanical Ventilator 30 05/08/17 23:17 98 12 40 05/08/17 21:21 81 24 40 05/08/17 20:00 30.0 05/08/17 20:00 100 05/08/17 20:00 97.9 129 32 139/73 Mechanical Ventilator 40 05/08/17 20:00 30.0 05/08/17 19:16 91 24 40 Intake and Output 05/09/17 05/10/17 19:00 07:00 Intake Total 590 ml Balance 590 ml Intake Free Water 100 ml Tube Feeding 250 ml Other 240 ml # Voids 1 # Bowel Movements 3 Laboratory Tests 05/09/17 13:35: Sodium Level 141, Potassium Level 3.6, Chloride Level 102, Carbon Dioxide Level 36H, Anion Gap 3L, Blood Urea Nitrogen 3L, Creatinine 0.4L, Estimat Glomerular Filtration Rate > 60, Glucose Level 123H, Calcium Level 8.8, Magnesium Level 1.5L, Total Bilirubin 0.3, Aspartate Amino Transf (AST/SGOT) 19, Alanine Aminotransferase (ALT/SGPT) 16, Alkaline Phosphatase 148H, Pro-B-Type Natriuretic Peptide 1637H, Total Protein 6.3L, Albumin 2.6L, Globulin 3.7, Albumin/Globulin Ratio 0.7L Height (Feet): 5 Height (Inches): 4.00 Weight (Pounds): 120 Objective Elder aa woman NCAT supple CTA RRR soft, flat abd, GT site appears normal with no d/c or swelling but (++) pain elicited with gentle GT manipulation, some milder lower abd TTP as well no edema MANJINDER HERNANDEZ May 09, 2017 17:49
[2017-05-09 19:59] VITALS: BP 135/56
[2017-05-09] MEDS: Dyna-Hex 2% Top Sol 2oz TOPIC SCH (20:26)
--- NOTE | 2017-05-09 22:47 | General Progress Note ---
Assessment/Plan Status: stable, unchanged Assessment/Plan encephalopathy due to [facility] [place]cont current meds Subjective Constitutional: Reports: malaise, weakness Neurologic/Psychiatric: Reports: anxiety Allergies: Coded Allergies: HEPARIN (Verified Allergy, Mild, Shortness of Breath, 05/03/17) ALBUTEROL (Verified Allergy, Unknown, 05/03/17) CODEINE (Verified Allergy, Unknown, 05/03/17) TRAMADOL (Verified Allergy, Unknown, 05/03/17) WARFARIN (Verified Allergy, Unknown, 05/03/17) Objective Last 24 Hour Vital Signs Date Time Temp Pulse Resp B/P (MAP) Pulse Ox O2 Delivery O2 Flow Rate FiO2 05/09/17 21:26 98.1 05/09/17 21:00 103 18 40 05/09/17 20:00 105 05/09/17 20:00 30.0 05/09/17 19:59 98.1 100 22 135/56 100 Mechanical Ventilator 05/09/17 18:52 103 22 40 05/09/17 17:57 86 107/57 05/09/17 17:04 86 20 40 05/09/17 16:05 30.0 05/09/17 16:00 93 05/09/17 16:00 97.8 85 20 107/57 100 Mechanical Ventilator 40 05/09/17 15:28 92 15 40 05/09/17 15:26 120 20 100 Mechanical Ventilator 30 05/09/17 13:30 88 151/83 05/09/17 13:17 112 15 40 05/09/17 12:14 139 151/83 05/09/17 12:09 139 151/83 05/09/17 12:00 30.0 05/09/17 12:00 97.0 139 20 153/81 99 Mechanical Ventilator 40 05/09/17 11:34 138 05/09/17 11:13 138 22 40 05/09/17 09:15 122 28 40 05/09/17 08:00 30.0 05/09/17 08:00 129 05/09/17 08:00 96.6 134 18 155/89 99 Mechanical Ventilator 40 05/09/17 07:34 139 30 30 05/09/17 07:25 139 30 40 05/09/17 05:32 98 12 100 Mechanical Ventilator 30 05/09/17 05:32 30 05/09/17 05:27 102 13 100 Mechanical Ventilator 30 05/09/17 05:18 98 12 40 05/09/17 04:00 30.0 05/09/17 04:00 30.0 05/09/17 04:00 133 05/09/17 04:00 98.2 104 22 133/75 100 Mechanical Ventilator 40 05/09/17 03:13 98 12 40 05/09/17 03:04 97.8 05/09/17 00:53 88 12 40 05/09/17 00:00 30.0 05/09/17 00:00 30.0 05/09/17 00:00 97 05/09/17 00:00 97.8 100 23 109/63 100 Mechanical Ventilator 40 05/08/17 23:19 30 05/08/17 23:19 93 12 100 Mechanical Ventilator 30 05/08/17 23:18 98 13 100 Mechanical Ventilator 30 05/08/17 23:17 98 12 40 Intake and Output 05/09/17 05/10/17 19:00 07:00 Intake Total 640 ml 450 ml Balance 640 ml 450 ml Intake Free Water 100 ml IV Total 300 ml Tube Feeding 300 ml 150 ml Other 240 ml # Voids 1 # Bowel Movements 3 1 Laboratory Tests 05/09/17 13:35: Sodium Level 141, Potassium Level 3.6, Chloride Level 102, Carbon Dioxide Level 36H, Anion Gap 3L, Blood Urea Nitrogen 3L, Creatinine 0.4L, Estimat Glomerular Filtration Rate > 60, Glucose Level 123H, Calcium Level 8.8, Magnesium Level 1.5L, Total Bilirubin 0.3, Aspartate Amino Transf (AST/SGOT) 19, Alanine Aminotransferase (ALT/SGPT) 16, Alkaline Phosphatase 148H, Pro-B-Type Natriuretic Peptide 1637H, Total Protein 6.3L, Albumin 2.6L, Globulin 3.7, Albumin/Globulin Ratio 0.7L Height (Feet): 5 Height (Inches): 4.00 Weight (Pounds): 120 General Appearance: no apparent distress, lethargic, confused, agitated Marcus Calabrese M.D. May 09, 2017 22:47
[2017-05-09] MEDS ORDERED: Levalbuterol Inh UD 1.25mg/0.5ml HHN PRN (23:15)
[2017-05-10] VITALS: BP 133/72
--- NOTE | 2017-05-10 01:32 | Consultation ---
DATE OF CONSULTATION: 05/09/2017 CARDIOLOGY CONSULTATION CONSULTING PHYSICIAN: James Richardson M.D. REQUESTING PHYSICIAN: Cortes Walker M.D. REASON FOR CONSULTATION: Tachyarrhythmia. HISTORY OF PRESENT ILLNESS: This is a 67-year-old female with ventilator-dependent respiratory failure and tracheostomy, was admitted to the hospital almost a week ago and is being treated for sepsis. Today, she developed a rapid heart rate and I have been asked to assist with further care. PAST MEDICAL HISTORY: 1. Pneumonectomy. 2. Ventilator-dependent respiratory failure. 3. Encephalopathy. 4. Paroxysmal atrial fibrillation. 5. History of congestive heart failure. 6. Tracheostomy. 7. Gastrostomy tube. MEDICATIONS: Medications prior to admission and currently are reviewed and reconciled. ALLERGIES: Reviewed. PHYSICAL EXAMINATION: VITAL SIGNS: Blood pressure 135/56, pulse 100, respirations 22, and afebrile. LUNGS: Coarse breath sounds. Scattered rhonchi. Trach site with thin secretions. HEART: Regular rhythm. Rapid rate. Normal S1, S2. ABDOMEN: Soft. G-tube intact. EXTREMITIES: No edema. LABORATORY DATA: Potassium 3.6 and magnesium 1.5. Albumin 2.6. Pro-natriuretic peptide 1637. EKG reviewed and reveals an ectopic atrial tachycardia. IMPRESSION: 1. Recovering sepsis. 2. Paroxysmal atrial tachyarrhythmias. 3. History of paroxysmal atrial fibrillation. 4. Acute on chronic diastolic congestive heart failure. 5. Ventilator dependent respiratory failure. 6. Hypomagnesemia. 7. Borderline hypokalemia. 8. Chronic encephalopathy. 9. [id number] protein-calorie malnutrition. PLAN: 1. IV magnesium replacement. 2. Additional potassium replacement. 3. Venous duplex of lower extremities. 4. Diltiazem for suppression of atrial tachyarrhythmias and rate control. 5. Monitor volume status. 6. Adjust cardiovascular regimen accordingly. 7. Presently no indication for diuresis. James Richardson M.D. DR: EDE JOB#: [id number] CC:
[2017-05-10 04:00] VITALS: BP 136/70
[2017-05-10] MEDS: dilTIAZem HCl 30mg tab GT SCH ×2 (05:44→12:00)
[2017-05-10 08:00] VITALS: BP 136/70
--- NOTE | 2017-05-10 08:11 | Pulmonology Progress Note ---
Assessment/Plan Assessment/Plan IMPRESSION respiratory failure trach gt leukocytosis possible sepsis chronic encephalopathy abdominal pain PLAN dc to snf continue same and cardiac management pain management dc planning today impression, plan, and exam edited and reviewed in detail care discussed with RN Subjective Allergies: Coded Allergies: HEPARIN (Verified Allergy, Mild, Shortness of Breath, 05/03/17) ALBUTEROL (Verified Allergy, Unknown, 05/03/17) CODEINE (Verified Allergy, Unknown, 05/03/17) TRAMADOL (Verified Allergy, Unknown, 05/03/17) WARFARIN (Verified Allergy, Unknown, 05/03/17) Subjective respiratory issues stable pain management noted orders given cards appreciated Objective Last 24 Hour Vital Signs Date Time Temp Pulse Resp B/P (MAP) Pulse Ox O2 Delivery O2 Flow Rate FiO2 05/10/17 08:00 98.1 91 26 136/70 100 Mechanical Ventilator 40 05/10/17 07:09 98 27 40 05/10/17 05:44 92 133/79 05/10/17 05:25 89 15 40 05/10/17 04:00 97.9 97 20 136/70 100 Mechanical Ventilator 05/10/17 04:00 30.0 05/10/17 04:00 80 05/10/17 02:57 84 20 40 05/10/17 01:15 88 19 40 05/10/17 00:00 78 05/10/17 00:00 98.1 99 21 133/72 100 Mechanical Ventilator 05/10/17 00:00 30.0 05/09/17 23:45 88 138/69 05/09/17 23:15 82 20 40 05/09/17 21:26 98.1 05/09/17 21:00 103 18 40 05/09/17 20:00 105 05/09/17 20:00 30.0 05/09/17 19:59 98.1 100 22 135/56 100 Mechanical Ventilator 05/09/17 18:52 103 22 40 05/09/17 17:57 86 107/57 05/09/17 17:04 86 20 40 05/09/17 16:05 30.0 05/09/17 16:00 93 05/09/17 16:00 97.8 85 20 107/57 100 Mechanical Ventilator 40 05/09/17 15:28 92 15 40 05/09/17 15:26 120 20 100 Mechanical Ventilator 30 05/09/17 13:30 88 151/83 05/09/17 13:17 112 15 40 05/09/17 12:14 139 151/83 05/09/17 12:09 139 151/83 05/09/17 12:00 30.0 05/09/17 12:00 97.0 139 20 153/81 99 Mechanical Ventilator 40 05/09/17 11:34 138 05/09/17 11:13 138 22 40 05/09/17 09:15 122 28 40 Intake and Output 05/10/17 05/11/17 19:00 07:00 # Voids 1 # Bowel Movements 1 Objective WDWN NAD reduced breath sounds bilaterally without rhonchi or wheeze [id number] without MRG NABS nontender no HSM; GT trach no CCE nonfocal Laboratory Tests 05/09/17 13:35: Sodium Level 141, Potassium Level 3.6, Chloride Level 102, Carbon Dioxide Level 36H, Anion Gap 3L, Blood Urea Nitrogen 3L, Creatinine 0.4L, Estimat Glomerular Filtration Rate > 60, Glucose Level 123H, Calcium Level 8.8, Magnesium Level 1.5L, Total Bilirubin 0.3, Aspartate Amino Transf (AST/SGOT) 19, Alanine Aminotransferase (ALT/SGPT) 16, Alkaline Phosphatase 148H, Pro-B-Type Natriuretic Peptide 1637H, Total Protein 6.3L, Albumin 2.6L, Globulin 3.7, Albumin/Globulin Ratio 0.7L Current Medications Medications (Trade) Dose Ordered Sig/Yg Route PRN Reason Start Time Stop Time Status Last Admin Dose Admin Acetaminophen (Tylenol) 650 mg Q4H PRN GT Mild Pain/Temp > 100.5 05/03/17 16:30 06/02/17 16:29 05/04/17 13:53 Acetaminophen/ Hydrocodone Bitart ([place] ) 1 ea Q4H PRN GT Moderate Pain (Pain Scale 4-6) 05/07/17 09:00 05/14/17 08:59 05/08/17 04:48 Al Hydroxide/Mg Hydroxide (Mylanta) 30 ml Q6H PRN GT Abdominal cramps 05/03/17 16:30 06/02/17 16:29 05/09/17 08:54 Chlorhexidine Gluconate (Caro-Hex 2%) 1 applic DAILY@2000 TOPIC 05/07/17 20:00 06/06/17 19:59 05/09/17 20:26 Diltiazem HCl (Cardizem) 30 mg EVERY 6 HOURS GT 05/09/17 12:00 06/08/17 11:59 05/10/17 05:44 Gabapentin (Neurontin) 300 mg THREE TIMES A DAY GT 05/08/17 09:30 06/07/17 09:29 05/09/17 17:57 Hydromorphone HCl (Dilaudid) 2 mg Q4H PRN GT severe pain 05/09/17 09:00 05/16/17 08:59 05/09/17 20:27 Lansoprazole (Prevacid) 30 mg BID GT 05/04/17 09:00 06/03/17 08:59 05/09/17 17:57 Levalbuterol HCl (Xopenex) 1.25 mg Q4HR PRN HHN Bronchospasm 05/09/17 23:15 05/14/17 23:14 Linezolid 300 ml @ 300 mls/hr Q12HR IVPB 05/05/17 12:00 05/12/17 11:59 05/09/17 20:27 Risperidone (RisperDAL) 1 mg EVERY 8 HOURS ORAL 05/07/17 22:00 06/06/17 21:59 05/10/17 05:44 GAGE CASAREZ May 10, 2017 08:11
--- NOTE | 2017-05-10 08:47 | General Progress Note ---
Assessment/Plan Assessment/Plan (1) Intractable abdominal pain (2) G-Tube r/o cutaneous nerve entrapment/irritation (3) Respiratory malfunction (4) Tracheostomy on ventilator Pt will be continued on Neurontin, [place] and Dilaudid. D/w Dr. Shaw and he concurred. Subjective Date patient seen: May 10, 2017 Time patient seen: 07:45 - am Allergies: Coded Allergies: HEPARIN (Verified Allergy, Mild, Shortness of Breath, 05/03/17) ALBUTEROL (Verified Allergy, Unknown, 05/03/17) CODEINE (Verified Allergy, Unknown, 05/03/17) TRAMADOL (Verified Allergy, Unknown, 05/03/17) WARFARIN (Verified Allergy, Unknown, 05/03/17) Subjective REVIEW OF SYSTEMS: Unable to obtain due to the patient's status, however, does have abdominal discomfort. SUBJECTIVE: Pt is in bed on vent not in any discomfort at this time. She explains through gestures that pain has been at a moderate level reduced on the increase of Neurontin, and using the Dilaudid and [place] for pain. Objective Last 24 Hour Vital Signs Date Time Temp Pulse Resp B/P (MAP) Pulse Ox O2 Delivery O2 Flow Rate FiO2 05/10/17 08:00 98.1 91 26 136/70 100 Mechanical Ventilator 40 05/10/17 07:09 98 27 40 05/10/17 05:44 92 133/79 05/10/17 05:25 89 15 40 05/10/17 04:00 97.9 97 20 136/70 100 Mechanical Ventilator 05/10/17 04:00 30.0 05/10/17 04:00 80 05/10/17 02:57 84 20 40 05/10/17 01:15 88 19 40 05/10/17 00:00 78 05/10/17 00:00 98.1 99 21 133/72 100 Mechanical Ventilator 05/10/17 00:00 30.0 05/09/17 23:45 88 138/69 05/09/17 23:15 82 20 40 05/09/17 21:26 98.1 05/09/17 21:00 103 18 40 05/09/17 20:00 105 05/09/17 20:00 30.0 05/09/17 19:59 98.1 100 22 135/56 100 Mechanical Ventilator 05/09/17 18:52 103 22 40 10/19/17 17:57 86 107/57 05/09/17 17:04 86 20 40 05/09/17 16:05 30.0 05/09/17 16:00 93 05/09/17 16:00 97.8 85 20 107/57 100 Mechanical Ventilator 40 05/09/17 15:28 92 15 40 05/09/17 15:26 120 20 100 Mechanical Ventilator 30 05/09/17 13:30 88 151/83 05/09/17 13:17 112 15 40 05/09/17 12:14 139 151/83 05/09/17 12:09 139 151/83 05/09/17 12:00 30.0 05/09/17 12:00 97.0 139 20 153/81 99 Mechanical Ventilator 40 05/09/17 11:34 138 05/09/17 11:13 138 22 40 05/09/17 09:15 122 28 40 Intake and Output 05/10/17 05/11/17 19:00 07:00 # Voids 1 # Bowel Movements 1 Laboratory Tests 05/09/17 13:35: Sodium Level 141, Potassium Level 3.6, Chloride Level 102, Carbon Dioxide Level 36H, Anion Gap 3L, Blood Urea Nitrogen 3L, Creatinine 0.4L, Estimat Glomerular Filtration Rate > 60, Glucose Level 123H, Calcium Level 8.8, Magnesium Level 1.5L, Total Bilirubin 0.3, Aspartate Amino Transf (AST/SGOT) 19, Alanine Aminotransferase (ALT/SGPT) 16, Alkaline Phosphatase 148H, Pro-B-Type Natriuretic Peptide 1637H, Total Protein 6.3L, Albumin 2.6L, Globulin 3.7, Albumin/Globulin Ratio 0.7L Height (Feet): 5 Height (Inches): 4.00 Weight (Pounds): 120 Objective GENERAL: Alert and awake. HEENT: PERRLA. NECK: Tracheostomy noted. Decreased range of motion. Tenderness to palpation. LUNGS: Decreased breath sounds bilaterally. HEART: S1 and S2 regular. ABDOMEN: Tenderness to palpation with PEG tube noted. BACK: Range of motion is decreased in flexion and extension. EXTREMITIES: No cyanosis. No edema. NEURO: No changes. AJ CARDONA May 10, 2017 08:47
[2017-05-10] MEDS: Gabapentin 300 MG/6 ML Soln GT SCH ×2 (09:36→12:49)
--- NOTE | 2017-05-10 11:30 | Infectious Diseases Prog Note ---
Assessment/Plan Assessment/Plan antibiotics : linezolid A 1. VRE UTI s/p rx 2. 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 CHF 6. respiratory failure P 1. d/c linezolid 2. observe off antibiotics Subjective ROS Limited/Unobtainable: Yes Allergies: Coded Allergies: HEPARIN (Verified Allergy, Mild, Shortness of Breath, 05/03/17) ALBUTEROL (Verified Allergy, Unknown, 05/03/17) CODEINE (Verified Allergy, Unknown, 05/03/17) TRAMADOL (Verified Allergy, Unknown, 05/03/17) WARFARIN (Verified Allergy, Unknown, 05/03/17) Objective Vital Signs Last 24 Hour Vital Signs Date Time Temp Pulse Resp B/P (MAP) Pulse Ox O2 Delivery O2 Flow Rate FiO2 05/10/17 09:08 86 12 100 Mechanical Ventilator 30 05/10/17 09:05 94 25 40 05/10/17 08:58 30 05/10/17 08:57 94 25 100 Mechanical Ventilator 30 05/10/17 08:00 98.1 91 26 136/70 100 Mechanical Ventilator 40 05/10/17 08:00 40.0 05/10/17 08:00 94 05/10/17 07:09 98 27 40 05/10/17 05:44 92 133/79 05/10/17 05:25 89 15 40 05/10/17 04:00 97.9 97 20 136/70 100 Mechanical Ventilator 05/10/17 04:00 30.0 05/10/17 04:00 80 05/10/17 02:57 84 20 40 05/10/17 01:15 88 19 40 05/10/17 00:00 78 05/10/17 00:00 98.1 99 21 133/72 100 Mechanical Ventilator 05/10/17 00:00 30.0 05/09/17 23:45 88 138/69 05/09/17 23:15 82 20 40 05/09/17 21:26 98.1 05/09/17 21:00 103 18 40 05/09/17 20:00 105 05/09/17 20:00 30.0 05/09/17 19:59 98.1 100 22 135/56 100 Mechanical Ventilator 05/09/17 18:52 103 22 40 05/09/17 17:57 86 107/57 05/09/17 17:04 86 20 40 05/09/17 16:05 30.0 05/09/17 16:00 93 05/09/17 16:00 97.8 85 20 107/57 100 Mechanical Ventilator 40 05/09/17 15:28 92 15 40 05/09/17 15:26 120 20 100 Mechanical Ventilator 30 05/09/17 13:30 88 151/83 05/09/17 13:17 112 15 40 05/09/17 12:14 139 151/83 05/09/17 12:09 139 151/83 05/09/17 12:00 30.0 05/09/17 12:00 97.0 139 20 153/81 99 Mechanical Ventilator 40 05/09/17 11:34 138 Height (Feet): 5 Height (Inches): 4.00 Weight (Pounds): 120 HEENT: status post trach Respiratory/Chest: lungs clear Cardiovascular: normal rate, regular rhythm, no gallop/murmur Abdomen: soft, non tender, other - GT Extremities: no edema Laboratory Tests Test 05/09/17 13:35 Sodium Level 141 MMOL/L (136-145) Potassium Level 3.6 MMOL/L (3.5-5.1) Chloride Level 102 MMOL/L (98-107) Carbon Dioxide Level 36 MMOL/L (21-32) H Anion Gap 3 mmol/L (5-15) L Blood Urea Nitrogen 3 mg/dL (7-18) L Creatinine 0.4 MG/DL (0.55-1.30) L Estimat Glomerular Filtration Rate > 60 mL/min (>60) Glucose Level 123 MG/DL (74-106) H Calcium Level 8.8 MG/DL (8.5-10.1) Magnesium Level 1.5 MG/DL (1.8-2.4) L Total Bilirubin 0.3 MG/DL (0.2-1.0) Aspartate Amino Transf (AST/SGOT) 19 U/L (15-37) Alanine Aminotransferase (ALT/SGPT) 16 U/L (12-78) Alkaline Phosphatase 148 U/L (46-116) H Pro-B-Type Natriuretic Peptide 1637 pg/mL (0-125) H Total Protein 6.3 G/DL (6.4-8.2) L Albumin 2.6 G/DL (3.4-5.0) L Globulin 3.7 g/dL Albumin/Globulin Ratio 0.7 (1.0-2.7) L HERB COLÓN May 10, 2017 11:29
--- NOTE | 2017-05-10 11:48 | General Progress Note ---
Assessment/Plan Status: unchanged Assessment/Plan [place] [facility] [place] current meds Subjective Neurologic/Psychiatric: Reports: anxiety Allergies: Coded Allergies: HEPARIN (Verified Allergy, Mild, Shortness of Breath, 05/03/17) ALBUTEROL (Verified Allergy, Unknown, 05/03/17) CODEINE (Verified Allergy, Unknown, 05/03/17) TRAMADOL (Verified Allergy, Unknown, 05/03/17) WARFARIN (Verified Allergy, Unknown, 05/03/17) Subjective the pt is calmer. no agitation today. confused Objective Last 24 Hour Vital Signs Date Time Temp Pulse Resp B/P (MAP) Pulse Ox O2 Delivery O2 Flow Rate FiO2 05/10/17 11:18 77 19 40 05/10/17 09:08 86 12 100 Mechanical Ventilator 30 05/10/17 09:05 94 25 40 05/10/17 08:58 30 05/10/17 08:57 94 25 100 Mechanical Ventilator 30 05/10/17 08:00 98.1 91 26 136/70 100 Mechanical Ventilator 40 05/10/17 08:00 40.0 05/10/17 08:00 94 05/10/17 07:09 98 27 40 05/10/17 05:44 92 133/79 05/10/17 05:25 89 15 40 05/10/17 04:00 97.9 97 20 136/70 100 Mechanical Ventilator 05/10/17 04:00 30.0 05/10/17 04:00 80 05/10/17 02:57 84 20 40 05/10/17 01:15 88 19 40 05/10/17 00:00 78 05/10/17 00:00 98.1 99 21 133/72 100 Mechanical Ventilator 05/10/17 00:00 30.0 05/09/17 23:45 88 138/69 05/09/17 23:15 82 20 40 05/09/17 21:26 98.1 05/09/17 21:00 103 18 40 05/09/17 20:00 105 05/09/17 20:00 30.0 05/09/17 19:59 98.1 100 22 135/56 100 Mechanical Ventilator 05/09/17 18:52 103 22 40 05/09/17 17:57 86 107/57 05/09/17 17:04 86 20 40 10/19/17 16:05 30.0 05/09/17 16:00 93 05/09/17 16:00 97.8 85 20 107/57 100 Mechanical Ventilator 40 05/09/17 15:28 92 15 40 05/09/17 15:26 120 20 100 Mechanical Ventilator 30 05/09/17 13:30 88 151/83 05/09/17 13:17 112 15 40 05/09/17 12:14 139 151/83 05/09/17 12:09 139 151/83 05/09/17 12:00 30.0 05/09/17 12:00 97.0 139 20 153/81 99 Mechanical Ventilator 40 Intake and Output 05/10/17 05/11/17 19:00 07:00 Intake Total 300 ml Balance 300 ml IV Total 300 ml # Voids 1 # Bowel Movements 2 Laboratory Tests 05/09/17 13:35: Sodium Level 141, Potassium Level 3.6, Chloride Level 102, Carbon Dioxide Level 36H, Anion Gap 3L, Blood Urea Nitrogen 3L, Creatinine 0.4L, Estimat Glomerular Filtration Rate > 60, Glucose Level 123H, Calcium Level 8.8, Magnesium Level 1.5L, Total Bilirubin 0.3, Aspartate Amino Transf (AST/SGOT) 19, Alanine Aminotransferase (ALT/SGPT) 16, Alkaline Phosphatase 148H, Pro-B-Type Natriuretic Peptide 1637H, Total Protein 6.3L, Albumin 2.6L, Globulin 3.7, Albumin/Globulin Ratio 0.7L Height (Feet): 5 Height (Inches): 4.00 Weight (Pounds): 120 General Appearance: no apparent distress, lethargic, confused Neurologic: disoriented, unresponsive Marcus Calabrese M.D. May 10, 2017 11:48
[2017-05-10 12:00] VITALS: BP 110/57
[2017-05-10] MEDS ORDERED: NS 550ML IV ONE (12:56)
[2017-05-10] MEDS ORDERED: Tubing IV Secondary IV ONE (12:56)
--- NOTE | 2017-05-11 04:00 | Progress Note ---
DATE: 05/10/2017 CARDIOLOGY PROGRESS NOTE SUBJECTIVE: The patient remains on ventilator support. Sinus tachycardia, now on the monitor and sinus rhythm. She was treated with diltiazem and ectopic atrial tachycardia resolved. Electrolytes were repleted as well. OBJECTIVE: VITAL SIGNS: Blood pressure 110/57, pulse 75, and respirations 18. NECK: Thin trach secretions. LUNGS: Coarse breath sounds. HEART: Regular rhythm and rate. Normal S1 and S2. ABDOMEN: Soft. G-tube intact. EXTREMITIES: No edema. IMPRESSION: 1. Paroxysmal supraventricular tachyarrhythmias. 2. Chronic obstructive pulmonary disease. 3. Chronic ventilator-dependent respiratory failure. 4. Moderate to severe protein-calorie malnutrition. 5. Hypomagnesemia. PLAN: 1. IV magnesium as already given. 2. Continue diltiazem for arrhythmia suppression. 3. Stable for subacute facility, but will require close monitoring of electrolytes and cardiorenal parameters. Presently, no role for diuretics. James Richardson M.D. DR: KILLIAN JOB#: [id number] CC:
--- NOTE | 2017-05-12 09:48 | Diagnostic Imaging Report ---
APPROVED REPORT CPT Code: 39878 Present Symptoms Shortness of breath Comments: Hx CHF, A-Fib. R/O DVT. BILATERAL: Imaging reveals a patent deep venous system bilaterally. There is no evidence of thrombus within the femoral, popliteal or tibial segments. The greater saphenous veins are also within normal limits. Doppler indicates normal spontaneous flow within these segments. The tibial veins were not well visualized bilaterally.
--- NOTE | 2017-05-12 17:38 | Cardiology Report ---
APPROVED REPORT EKG Measurement Heart [id number] Unusual P axis, possible ectopic atrial tachycardia Abnormal ECG
--- NOTE | 2017-05-13 08:36 | Discharge Summary ---
Discharge Summary Hospital Course Date of Admission May 03, 2017 at 11:48 Date of Discharge May 10, 2017 at 12:57 Admitting Diagnosis urinary tract infection HPI Anne Montes is a 67 year old female who was admitted on May 03, 2017 at 11: 48 for Urinary Tract Infection Hospital Course dc summary #[id number] Discharge Condition Upon Discharge: stable Discharge Disposition Patient was discharged to SNF/Subacute Facility(03) Discharge Diagnoses: Discharge Instructions Discharge Instructions Special Instructions I have been assigned to complete a D/C Summary on this account. I was not involved in the patient management Urszula Duncan NP (Vanchtein) May 13, 2017 08:36
--- NOTE | 2017-05-13 13:59 | Cardiology Report ---
APPROVED REPORT EXAM: Two-dimensional and M-mode echocardiogram with Doppler and color Doppler. INDICATION Arrhythmia M-Mode DIMENSIONS IVSd1.0 (0.7-1.1cm)Left Atrium (MM)2.4 (1.6-4.0cm) LVDd3.5 (3.5-5.6cm)Aortic Root1.8 (2.0-3.7cm) PWd1.0 (0.7-1.1cm)Aortic Cusp Exc.1.5 (1.5-2.0cm) LVDs2.5 (2.5-4.0cm) PWs1.5 cm Technically difficult study due to poor parasternal acoustical windows and patient on ventilator. Study quality precludes accurate assessment of regional wall motion. Normal left ventricular chamber size, systolic function and wall motion. Left ventricular ejection fraction estimated to be 55 %. No evidence of left ventricular hypertrophy. Small pericardial effusion. Severe right ventricular enlargement. Mild right atrial enlargement. Moderate focal aortic valve sclerosis with minimal cusp excursion. Mildly thickened mitral valve leaflets with normal excursion. Mild mitral annulus and aortic root calcification. Normal pulmonic valve structure. Normal tricuspid valve structure. IVC dilated at 2.8 cm without physiologic collapse, estimated RAP is 20 mmHg. A color flow and spectral Doppler study was performed and revealed: Trace aortic regurgitation. Trace mitral regurgitation. Left ventricular diastolic function could not be obtained due to arrhythmia. Mild to moderate tricuspid regurgitation. Tricuspid systolic velocities suggests peak right ventricular systolic pressure of 100 mmHg, consistent with SEVERE pulmonary hypertension. Mild pulmonic regurgitation present.
--- NOTE | 2017-05-14 05:00 | Discharge Summary 2 SIG ---
DATE OF ADMISSION: 05/03/2017 DATE OF DISCHARGE: 05/10/2017 REASON FOR ADMISSION: 67-year-old female, resident of a subacute facility with chronic respiratory failure, ventilator dependency, and tracheostomy, history of right pneumonectomy, CHF , paroxysmal atrial fibrillation, not on any anticoagulation due to GI bleeding, gastrostomy tube, chronic encephalopathy, presented with abdominal pain. Workup in the emergency room revealed leukocytosis, borderline fever, and tachycardia. Urinalysis with evidence of UTI. Initially on presentation, the patient was also hypotensive, but improved with a fluid challenge. ADMITTING DIAGNOSES: 1. Sepsis. 2. Urinary tract infection. 3. Chronic respiratory failure. 4. Chronic encephalopathy. 5. Dysphagia, gastrostomy tube. HOSPITAL STAY: The patient was admitted to [facility]. The patient was pancultured and started on IV antibiotics. No signs of respiratory distress on current ventilator settings. Continue setting as is. Ventilator support and tracheostomy care were provided. Pulmonary toilet was provided as needed. Chest x-ray with evidence of right pneumonectomy, otherwise no changes. Urine culture grew VRE. The patient was on antibiotics, status post antibiotic treatment. ID specialist closely followed, recommended to observe off antibiotic. Leukocytosis resolved. No fever. Patient Escort closely followed. The patient has a history of paroxysmal atrial fibrillation. The patient exhibited paroxysmal atrial tachyarrhythmia. The patient was started on diltiazem for suppression of atrial tachycardia and rate control. Volume status was closely monitored. Venous duplex of bilateral lower extremities was negative. Cardiovascular regimen was adjusted accordingly. No indication for diuresis at present time as per Cardiology. GI closely followed. The patient had a recent G tube placement and experienced G-tube site pain with gentle manipulation. According to the GI specialist, likely irritation, possible cutaneous nerve entrapment. A trial of topical lidocaine was attempted along with pain specialist consult. Pain management was optimized as per pain specialist recommendation. Pain controlled. Abdominal ultrasound revealed gallstones and sludge. No other significant findings. CT of the abdomen and pelvis basically was unremarkable except with evidence of pneumonectomy and some small gallstones within the gallbladder. Psychiatrist had seen the patient and diagnosed the patient with encephalopathy due to general medical condition. The patient was clinically improving. Electrolytes were replaced as needed. The patient was stable for discharge back to subacute facility. Off antibiotics and observe. FINAL DIAGNOSES: 1. Sepsis. 2. Urinary tract infection with vancomycin-resistant enterococcus. 3. Paroxysmal atrial tachyarrhythmia. 4. Paroxysmal atrial fibrillation. 5. Ventilator-dependent respiratory failure. 6. Electrolyte imbalance (hypomagnesemia and hypokalemia). 7. Chronic obstructive pulmonary disease. 8. Chronic encephalopathy. 9. [id number] malnutrition. 10. Dysphagia, gastrostomy tube. 11. Status post recent percutaneous endoscopic gastrostomy with the gastrostomy tube site pain DISCHARGE MEDICATIONS: The list of medication was sent to discharge facility. DISCHARGE INSTRUCTIONS: The patient was discharged to subacute facility. FOLLOWUP: Follow up with pipe covering molder and medical doctor at the facility. Cortes Walker M.D. I have been assigned to dictate discharge summary on this account and I was not involved in the patient's management. Urszula FernándezBayley Seton Hospitalpop N.PPrasad DR: MIGUEL JOB#: [id number] CC: TROY
--- NOTE | 2017-05-14 08:38 | Cardiology Report ---
APPROVED REPORT EKG Measurement Heart [id number] Normal sinus rhythm Right atrial enlargement Borderline ECG
== END 2017-05-10 12:57 | DRG 870 ==
LOC: EDBD 08:44 → EMR 09:16 → EDBEDREQ 11:07 → 2W 11:48 → EDBEDREQ 13:19
PROC: 5A1955Z Respiratory Ventilation, Greater than 96 Consecutive Hours (ICD-10-PCS; principal; 2017-05-03)
PROC: 02HV33Z Insertion of Infusion Device into Superior Vena Cava, Percutaneous Approach (ICD-10-PCS; 2017-05-07)
PROC: B548ZZA Ultrasonography of Superior Vena Cava, Guidance (ICD-10-PCS; 2017-05-07)
DX: A41.9 Sepsis, unspecified organism (principal); E43 Unspecified severe protein-calorie malnutrition; Z99.11 Dependence on respirator [ventilator] status; G93.40 Encephalopathy, unspecified; J96.10 Chronic respiratory failure, unspecified whether with hypoxia or hypercapnia; Z93.0 Tracheostomy status; I50.33 Acute on chronic diastolic (congestive) heart failure; N39.0 Urinary tract infection, site not specified; R65.20 Severe sepsis without septic shock; Z93.1 Gastrostomy status; I48.0 Paroxysmal atrial fibrillation; D64.9 Anemia, unspecified; R13.10 Dysphagia, unspecified; G58.8 Other specified mononeuropathies; E83.42 Hypomagnesemia; E87.6 Hypokalemia; Z68.20 Body mass index [BMI] 20.0-20.9, adult
CPT/HCPCS: 36415; 36569; 71010; 74177; 76700; 76937; 80048; 80053; 80202; 81003; 82150; 83540; 83550; 83690; 83735; 83880; 84484; 85007; 85025; 87040; 87081; 87086; 87181; 93005; 93306; 93970; 94002; 94003; 94640; 94664; 99291; J2405